=== PATIENT | male | born 1980 | race Caucasian/White ===

== ENCOUNTER → 2017-10-09 15:00 | Outpatient (CLI) | payer OTHER, SELFPAY ==
[2017-10-09 17:39] LABS: Absolute Lymphocyte Count 3.24 X10^3/ul (0.83-4.51); Absolute Neutrophil Count 5.4 X10^3/uL (2.0-7.7); Basophil# 0.03 X10^3/uL; Basophil% 0.3 % (0-1); Eosinophil# 0.18 X10^3/uL; Eosinophils% 1.9 % (0-5); Hematocrit 43.1 % (40-54); Hemoglobin 14.9 g/dl (13.0-16.5); Lymphocyte # 3.24 X10^3/ul (4.0); Lymphocyte % 34.2 % (19-41); Mean Corp Hgb Conc 34.6 g/gl (32-36); Mean Corpuscular Volume 86.9 fL (80-94); Mean Platelet Vol. 11.1 fl (6.2-12.0); Monocyte# 0.67 X10^3/uL; Monocyte% 7.1 % (0-10); Neutrophil # 5.35 X10^3/uL (2.7-7.7); Neutrophil % 56.4 % (47-70); POSITIVE COUNT NO; POSITIVE DIFFERENTIAL NO; POSITIVE MORPHOLOGY NO; Platelet Count 205 K/mm3 (150-450); RBC Distribution Width CV 13.3 % (11.6-14.6); RBC Distribution Width SD 42.3 fl (35.1-43.9); Red Blood Count 4.96 M/mm3 (4.6-6.2); White Blood Count 9.5 K/mm3 (4.4-11.0)
[2017-10-09 17:44] LABS: ALB/GLOB Ratio 0.9 RATIO (0.9-2.4); AST(SGOT) 29 U/L (15-37); Alanine Aminotransfer ALT/SGPT 63 U/L (16-61); Albumin, Serum 3.7 g/dL (3.2-5.0); Alkaline Phosphatase 94 U/L (45-117); Anion Gap 7 (5-15); BUN 10 mg/dL (7-18); BUN/Creat Ratio 10.1 RATIO (10-20); Calcium,Total 9.2 mg/dL (8.5-10.1); Chloride 104 mmol/L (98-107); Creatinine, Serum 0.99 mg/dL (0.70-1.30); EST Glomerular Filtration Rate 91 mL/min (>60); Est Glom Filt Rate - Afr Amer 110 mL/min (>60); Glucose 74 mg/dL (74-106); Potassium 3.8 mmol/L (3.5-5.1); Protein, Total 7.7 g/dL (6.4-8.2); Sodium Level 139 mmol/L (136-145)
[2017-10-17 12:09] LABS: QNTFERON TB Ag Minus Nil Value < 0 IU/mL (.); QNTFERON TB Ag Value 0.13 IU/mL (.); QNTFERON TB Mitogen Value 6.89 IU/mL (.); QNTFERON TB Nil Value 0.18 IU/mL (.)
[2017-10-17 13:35] LABS: QNTIFERON TB Gold Negative (Negative)
== END ==
PROVIDERS: Family Provider Family Medicine; PCP Family Medicine; Visit Provider Physician Assistant
DX: L40.0 Psoriasis vulgaris (principal); Z79.899 Other long term (current) drug therapy
CPT/HCPCS: 36415; 80053; 85025; 86480

== ENCOUNTER → 2020-08-02 11:34 | Outpatient (CLI) | payer MEDICAID, SELFPAY ==
[2020-07-28 16:21] VITALS: BMI 31.1
[2020-08-02 15:23] LABS: Cholesterol 183 mg/dL (200); High Density Lipoprotein 31 mg/dL; Triglycerides 308 mg/dL; Very Low Density Lipoprotein 62 mg/dL (5-40)
== END ==
PROVIDERS: Referring Provider Dermatology Pediatric Dermatology; Visit Provider Dermatology Pediatric Dermatology
DX: L30.9 Dermatitis, unspecified (principal)
CPT/HCPCS: 36415; 80061

== ENCOUNTER 2021-01-05 16:01 | Emergency (ER) | payer MEDICAID, SELFPAY ==
[2021-01-05 16:02] VITALS: BP 129/78; PULSE 149; RESP 16; TEMP 37.1; O2SAT 98; BMI 37.5
[2021-01-05 16:15] VITALS: PULSE 137; RESP 31; O2SAT 96
--- NOTE | 2021-01-05 16:21 | EX.ED.DYSGE1 ---
HPI History of Present Illness Chief Complaint: Fever Informant: patient Onset/Context/Timing Onset: Days Context: Gradual Onset Timing: Intermittent Current Severity: Mild Maximum Severity: Mild Narrative Narrative: 40-year-old male states he had Covid earlier this year and tested positive at that time. He also has a history of psoriasis for which she is on immunosuppressant injection. States he is just not felt so good the last several days. Today he had a fever as high as 103. Complains of shortness of breath, diarrhea and headache. He feels lightheaded. He has had nausea but no vomiting. He denies any significant cough. He has been treatment this with Tylenol and denies any dysuria. Prior similar symptoms: No Recent Illness/Hospitalization: No PFSH PFSH Medical History Chronic neck and back pain Knee pain Paronychia of great toe, left Seasonal allergies Home Medications amoxicillin 875 mg-potassium clavulanate 125 mg tablet 1 tab PO BID #20 tab 07/28/20 [Rx Last Taken Unknown] trazodone 150 mg tablet 150 mg PO tab 07/28/20 [History Last Taken Unknown] cephalexin 500 mg PO Q6H 10 Days #40 cap 01/05/21 [Rx Last Taken Unknown] Allergy/AdvReac Type Severity Reaction Status Date / Time No Known Allergies Allergy Verified 01/05/21 16:04 Surgical History no surgical history Social History Smoking Status: Never smoker alcohol intake: current alcohol intake frequency: a few times a week Alcohol type: beer ROS ROS ED ROS Narrative Fever, nausea, shortness of breath, diarrhea and headache. Review of Systems ROS Unobtainable: Denies due to encephalopathy Constitutional Constitutional ED: Reports fever(s) Eyes Eyes: Denies change in vision ENT ENT ED: Denies ear pain or sore throat Cardiovascular Cardiovascular: Denies chest pain Respiratory/Chest Respiratory/Chest: Reports dyspnea; Denies cough Gastrointestinal Gastrointestinal: Reports diarrhea and nausea; Denies abdominal pain, constipation or vomiting Genitourinary Genitourinary ED: Denies dysuria Musculoskeletal Musculoskeletal: Denies myalgias Integumentary Denies rash Neurologic Neurologic: Reports headache(s) Psychiatric Psychiatric: Denies depression Endocrine Endocrinology: Denies polyuria Allergic/Immunologic Allergic/Immunologic ED: Denies urticaria EXAM Physical Exam Narrative Exam Narrative: 40-year-old male vital signs are stable he is tachycardic at 140. H EENT exam unremarkable. Posterior pharynx normal. Moist remembers. Neck nontender no meningismus no lymphadenopathy. Lungs clear to auscultation bilaterally. Heart tachycardic again rate around 140 no murmur. Abdomen soft nondistended normal bowel sounds no peritoneal signs. Moving all 4 extremities. Calves nontender without edema or cords. Back nontender. Neurologically is awake alert with no focal motor deficits. Clinically the patient does not look septic. Const Vital Signs: 01/05/21 16:02 01/05/21 16:15 01/05/21 16:16 Temperature 98.7 F Temperature Source Temporal Pulse Rate 149 H 137 H Respiratory Rate 16 31 H Respiratory Effort Normal Respiratory Pattern Tachypnea Blood Pressure 129/78 H Blood Pressure Mean 95 Pulse Ox 98 96 Oxygen Delivery Method Room Air Room Air 01/05/21 17:05 01/05/21 18:20 01/05/21 18:27 Temperature 102.6 F H 99.6 F H Temperature Source Oral Oral Pulse Rate 115 H 116 H Respiratory Rate 26 H 24 H Respiratory Effort Respiratory Pattern Blood Pressure 128/74 H 144/77 H Blood Pressure Mean 92 99 Pulse Ox 96 96 Oxygen Delivery Method Room Air Room Air Positive well nourished, well developed and obese; Negative for cachectic, contractures or unkempt General Appearance ED: well developed and NAD; Negative for unkempt, cachectic, contractures, cyanotic, diaphoretic or pallor Nutritional Appearance: obese; Negative for cachectic HEENT Reports moist mucous membranes Negative for trauma or tenderness Eyes PERRL and EOMs intact bilaterally General Eye ED: Negative for pale conjunctiva or scleral icterus Neck no lymphadenopathy, supple and no JVD General: Negative for tenderness Chest Wall inspection of chest normal and palpation of chest normal Resp normal respiratory effort and clear to auscultation bilaterally Effort and Inspection: Negative for pain with movement Auscultation: Negative for rales, rhonchi or wheezes Cardio regular rate, regular rhythm, S1 normal heart sound, S2 normal heart sound and no murmurs GI normal to inspection, nondistended, normoactive bowel sounds, non-tender, non-distended and no masses Inspection: Negative for abdominal distention Auscultation: normoactive bowel sounds Palpation: soft; Negative for tender, guarding or rebound tenderness present Back/Spine no CVA tenderness General Back: Negative for CVA tenderness Cervical Spine: Negative for cervical spine tenderness Thoracic Spine / Upper Back: Negative for thoracic spinal tenderness or paraspinal muscle tenderness Extremity normal to inspection General Extremety ED: Negative for edema or tenderness General Extremity: Negative for edema Neuro oriented x3 and CN's II-XII intact bilaterally Sensorium / Orientation: alert; Negative for orientation impaired, lethargic or stuporous Motor Exam: strength 5/5 throughout Psych mental status grossly normal Appearance: Negative for unkempt Mood & Affect: Negative for depressed or tearful Skin no rashes or lesions noted, no wounds and No skin turgor normal General Skin Exam: Negative for elasticity normal, jaundice or pallor MDM MDM MDM Narrative Medical decision making narrative: 40-year-old male no acute distress states he has not felt well last several days with a fever and other symptoms. We treated with IV fluids. Currently he is afebrile. Labs are being obtained to work him up for infectious etiology. Exam is benign. Repeat exam patient has a temperature 102.6 and is tachycardic at 120. He will be given a second liter of IV saline and IV Toradol for his fever. So far his work-up has been negative. I discussed this test with him. Were awaiting his urinalysis. Repeat exam patient is doing well at 6:50 PM. His fever is improved after the Toradol. Is now 99.6. He was given a second liter of fluid. I explained to the patient his test results we will send urine and blood cultures. I am to start him on Keflex for the possibility this is an early urinary tract infection versus a viral syndrome. Lab Data Attestation: I reviewed the patient's lab results. Lab results narrative: CBC shows a white 11.1. Hemoglobin 16. No bands. Electrolytes shows a gap of 6 normal BUN and creatinine. Liver enzymes unremarkable. Lactic acid normal 1.6. Chest x-ray unremarkable. Covid test is negative also. Urinalysis shows 5-10 white cells no nitrates and 1+ bacteria culture will be sent. I did his prostate exam is nontender and not boggy. I do not think this is prostatitis. Urine and blood culture will be sent. I will start this patient on Keflex in case this is an early urinary tract infection versus a viral illness. Labs: Laboratory Results - last 24 hr 01/05/21 01/05/21 01/05/21 16:20 16:20 16:20 WBC 11.1 H RBC 5.37 Hgb 16.2 Hct 45.3 MCV 84.4 MCH 30.2 MCHC 35.8 RDW Std Deviation 41.2 RDW Coeff of [place]ameka 13.4 Plt Count 181 MPV 10.4 Immature Gran % (Auto) 0.400 Neut % (Auto) 83.8 H Lymph % (Auto) 10.6 L [place] % (Auto) 5.0 Eos % (Auto) 0.0 Baso % (Auto) 0.2 Absolute Neuts (auto) 9.3 H Absolute Lymphs (auto) 1.17 Nucleated RBC % 0 Sodium 136 Potassium 3.7 Chloride 101 Carbon Dioxide 29.0 Anion Gap 6 BUN 13 Creatinine 1.18 Estim Creat Clear Calc 82.12 Est GFR (MDRD) Af Amer 89 Est GFR (MDRD) Non-Af 73 BUN/Creatinine Ratio 11.0 Glucose 125 H Lactic Acid 1.6 Calcium 8.7 Total Bilirubin 0.90 AST 18 ALT 32 Alkaline Phosphatase 97 Total Protein 8.0 Albumin 3.8 Globulin 4.2 Albumin/Globulin Ratio 0.9 Urine Color Urine Clarity Urine pH Ur Specific [place] Urine Protein Urine Glucose (UA) Urine Ketones Urine Occult Blood Urine Nitrite Urine Bilirubin Urine Urobilinogen Ur Leukocyte Esterase Urine RBC Urine WBC Ur Squamous Epith Cells Urine Bacteria Urine Mucus 01/05/21 17:02 WBC RBC Hgb Hct MCV MCH MCHC RDW Std Deviation RDW Coeff of [place] Plt Count MPV Immature Gran % (Auto) Neut % (Auto) Lymph % (Auto) [place] % (Auto) Eos % (Auto) Baso % (Auto) Absolute Neuts (auto) Absolute Lymphs (auto) Nucleated RBC % Sodium Potassium Chloride Carbon Dioxide Anion Gap BUN Creatinine Estim Creat Clear Calc Est GFR (MDRD) Af Amer Est GFR (MDRD) Non-Af BUN/Creatinine Ratio Glucose Lactic Acid Calcium Total Bilirubin AST ALT Alkaline Phosphatase Total Protein Albumin Globulin Albumin/Globulin Ratio Urine Color Yellow Urine Clarity Clear Urine pH 5.0 Ur Specific [place] 1.025 Urine Protein 100 H Urine Glucose (UA) Normal Urine Ketones 5 H Urine Occult Blood 10 H Urine Nitrite Negative Urine Bilirubin 1 H Urine Urobilinogen 1 H Ur Leukocyte Esterase 25 H Urine RBC 0 SEEN Urine WBC 5-10 SEEN Ur Squamous Epith Cells 0 SEEN Urine Bacteria 1+ Urine Mucus 2+ Radiography Chest X-Ray - ED: 1 View, Read by ED Physician, Heart, Lungs, Mediastinum, Bony Structures, No Acute Disease and Chronic Changes Diagnostic Testing: Clinical Impression(s) from Imaging Studies Chest X-Ray 01/05/21 16:27 IMPRESSION: Nonacute portable x-ray examination of the chest. Electronically Signed: Marcin Palacios MD ([place]) at 16:47 EST , Service support , Portable chest x-ray, single view interpreted both by myself the radiologist shows no acute abnormality. No infiltrate. No pneumonia. Discharge Plan Triage Chief Complaint: Fever ED Provider: Hector Mercedes Dx/Rx/DC Orders Clinical Impression: Fever, Acute UTI Instructions: Urinary Tract Infections in Men, ED FUO Adult Prescriptions: New cephalexin 500 mg capsule 500 mg PO Q6H 10 Days Qty: 40 RF: 0 No Action trazodone 150 mg tablet 150 mg PO RF: 0 amoxicillin-pot clavulanate 875-125 mg tablet 1 tab PO BID Qty: 20 RF: 0 Primary Care Provider: Care Physician,No Primary Referrals: Kyler Heart MD [STAFF PHYSICIAN] - 3-5 Days Care Physician,No Primary [Primary Care Provider] - Activity Restrictions/Additional Instructions: We do not have a specific source for your fever this is either viral syndrome or early urinary tract infection. In case it is an early urinary tract infection we are starting you on antibiotic Keflex 4 times a day. If is a viral syndrome and improved. I did send urine cultures and blood cultures if those are positive we will call you in the next 24 to 48 hours. Plenty of fluids and rest. Alternate Tylenol and Motrin for fever. Return to the emergency department if you are feeling worse. Follow-up with Dr. Kyler Parikh of [facility] to be reevaluated and to get a primary care physician. Disposition Disposition: Home, Self Care
[2021-01-05] MEDS: 0.9% Normal Saline 1,000 ML 1000 ML IV (16:23)
--- NOTE | 2021-01-05 16:27 | RAD_ITS ---
STUDY: X-RAY CHEST REASON FOR EXAM: Male, 40 years old. fever TECHNIQUE: AP COMPARISON: None. FINDINGS: The lungs are clear and expanded. There is no demonstrated pleural abnormality. Normal size heart. Normal mediastinum and shameka. Normal visualized pulmonary arteries. Normal visualized aortic arch and descending thoracic aorta. Normal visualized thoracic spine. Normal visualized ribs, clavicles, and shoulders. There is no demonstrated abnormality of the visualized soft tissue structures of the upper abdomen. RAD/Chest 1 View (Portable) IMPRESSION: Nonacute portable x-ray examination of the chest. Electronically Signed: Marcin Palacios MD ([place]) at 16:47 EST , Service support ,
[2021-01-05 16:28] LABS: Absolute Lymphocyte Count 1.17 X10^3/uL (0.83-4.51); Absolute Neutrophil Count 9.3 X10^3/uL (2.0-7.7); Basophil# 0.02 X10^3/uL; Basophil% 0.2 % (0-1); Hematocrit 45.3 % (40-54); Hemoglobin 16.2 g/dL (13.0-16.5); Lymphocyte # 1.17 X10^3/ul (0.83-4.51); Lymphocyte % 10.6 % (19-41); Mean Corp Hgb Conc 35.8 g/dL (32-36); Mean Corpuscular Hgb 30.2 pg (27.0-32.0); Mean Corpuscular Volume 84.4 fL (80-94); Mean Platelet Vol. 10.4 fl (6.2-12.0); Monocyte# 0.55 X10^3/uL; NRBC Flagged by Analyzer 0 % (0-5); Neutrophil # 9.31 X10^3/uL (2.7-7.7); Neutrophil % 83.8 % (47-70); Platelet Count 181 K/mm3 (150-450); RBC Distribution Width CV 13.4 % (11.6-14.6); RBC Distribution Width SD 41.2 fl (35.1-43.9); Red Blood Count 5.37 M/mm3 (4.6-6.2); White Blood Count 11.1 K/mm3 (4.4-11.0)
[2021-01-05 16:45] LABS: ALB/GLOB Ratio 0.9 RATIO (0.9-2.4); AST(SGOT) 18 U/L (15-37); Alanine Aminotransfer ALT/SGPT 32 U/L (16-61); Albumin, Serum 3.8 g/dL (3.2-5.0); Alkaline Phosphatase 97 U/L (45-117); Anion Gap 6 (5-15); BUN 13 mg/dL (7-18); Calcium,Total 8.7 mg/dL (8.5-10.1); Chloride 101 mmol/L (98-107); Creatinine, Serum 1.18 mg/dL (0.70-1.30); EST Glomerular Filtration Rate 73 mL/min (>60); Est Glom Filt Rate - Afr Amer 89 mL/min (>60); Estimated Creatinine Clearance 82.12 ml/min; Globulin 4.2 g/dL (2.2-4.2); Glucose 125 mg/dL (74-106); Potassium 3.7 mmol/L (3.5-5.1); Sodium Level 136 mmol/L (136-145)
[2021-01-05 16:59] LABS: Lactic Acid 1.6 mmol/L (0.4-1.9)
[2021-01-05 17:05] VITALS: BP 128/74; PULSE 115; RESP 26; TEMP 39.2; O2SAT 96
[2021-01-05 17:13] LABS: Red Blood Cells-Urine 0 SEEN /hpf (0-5); Squamous Epithelial Cells - UA 0 SEEN /hpf (0-5)
[2021-01-05 17:17] LABS: Color, Urine Yellow (Yellow); Glucose, Dipstick Normal (Normal); Ketone-Dipstick 5 mg/dl (Negative); Leukocyte Esterase-Dipstick 25 /ul (Negative); Nitrite-Dipstick Negative (Negative); Occult Blood-Urine 10 /ul (Negative); Protein-Dipstick 100 mg/dl (Negative); Specific Gravity, Urine 1.025 (1.002-1.030); Urine Clarity Clear (Clear); Urine Urobilinogen 1 mg/dl (Normal)
[2021-01-05 17:36] LABS: Bacteria 1+ /hpf (None Seen); Mucous, Urine 2+ /hpf (<or=2+); Urine Bilirubin Dipstick 1 mg/dL (Negative); White Blood Cells 5-10 SEEN /hpf (0-5)
[2021-01-05] MEDS: Ketorolac 30 MG/ML Syringe IV (17:38)
[2021-01-05] MEDS: 0.9% Normal Saline 1,000 ML 999 ML IV (17:38)
[2021-01-05 18:20] VITALS: BP 144/77; PULSE 116; RESP 24; O2SAT 96
[2021-01-05 18:27] VITALS: TEMP 37.6
[2021-01-05] MEDS: Ondansetron 4 MG/2 ML Vial IV (18:28)
[2021-01-05] MEDS: Cephalexin 250 MG Capsule 500 MG PO (19:05)
[2021-01-05 19:06] VITALS: BP 123/61; PULSE 110; RESP 16; O2SAT 98
== END 2021-01-05 19:08 | disposition home or self-care (01) ==
PROVIDERS: Emergency Provider Emergency Medicine
DX: N39.0 Urinary tract infection, site not specified (principal); L40.9 Psoriasis, unspecified; Z79.899 Other long term (current) drug therapy
CPT/HCPCS: 36415; 71045; 80053; 81001; 83605; 85025; 87040; 87086; 87426; 96361; 96374; 96375; 99285; J7030; A4216; J2405

== ENCOUNTER 2021-01-08 06:57 | Emergency (ER) | payer MEDICAID, SELFPAY ==
[2021-01-08 06:58] VITALS: BP 154/93; PULSE 99; RESP 24; TEMP 36.8; O2SAT 92; BMI 44.3
--- NOTE | 2021-01-08 07:04 | EX.ED.DYSGE1 ---
HPI History of Present Illness Chief Complaint: Fever Informant: patient and spouse/S.O. Narrative Narrative: Patient presents with some nausea and diarrhea as well as fever. He started his symptoms on Sunday which were still having fever. He was seen here on Sunday. He had extensive work-up done. There was questions of a possible UTI so he was treated He has no urinary symptoms now. pending cultures. He has no cough at all. He states he feels maybe a little short of breath when he walks around but is mostly decreased energy with activity. He gets nauseated mostly if he tries to eat or drink anything so he is not drinking. No chest pain. No myalgias. He does admit that the urine is a little darker but it does not burn or hurt. Patient had no fever yesterday. He was concerned because he had a fever of 100.2 this morning. He has been using family's Reglan for his nausea which is not helping a lot. He is taking his cephalexin. No other antibiotics within months. No travel out of the country. He is on well water not city water but no one else feels ill. He had Covid earlier this year. He has not had Covid or influenza vaccines. [facility] Medical History Chronic neck and back pain Knee pain Paronychia of great toe, left Seasonal allergies Home Medications trazodone 150 mg tablet 150 mg PO QHS tab 07/28/20 [History Last Taken Unknown] cephalexin 500 mg PO Q6H 10 Days #40 cap 01/05/21 [Rx Last Taken Unknown] aripiprazole 30 mg PO DAILY 01/08/21 [History Last Taken Unknown] venlafaxine 75 mg PO 01/08/21 [History Last Taken Unknown] venlafaxine 150 mg PO 01/08/21 [History Last Taken Unknown] Allergy/AdvReac Type Severity Reaction Status Date / Time No Known Allergies Allergy Verified 01/08/21 07:01 Social History Smoking Status: Never smoker alcohol intake: current alcohol intake frequency: a few times a week Alcohol type: beer ROS ROS ED Constitutional Constitutional ED: Reports fever(s) and subjective; Denies sweats or weight loss Eyes Eyes: Denies blurry vision ENT ENT ED: Denies ear pain, rhinorrhea or sore throat Cardiovascular Cardiovascular: Denies chest pain or palpitations Respiratory/Chest Respiratory/Chest: Reports dyspnea; Denies cough or sputum Gastrointestinal Gastrointestinal: Reports diarrhea, nausea and vomiting; Denies abdominal pain, constipation or melena Genitourinary Genitourinary ED: Reports other Details: Urine is darker than normal but no burning discomfort frequency or urgency. ; Denies dysuria or hematuria Musculoskeletal Musculoskeletal: Denies myalgias Integumentary Denies rash Neurologic Neurologic: Denies headache(s) or weakness Endocrine Endocrinology: Denies polydipsia or polyuria Allergic/Immunologic Allergic/Immunologic ED: Denies mouth swelling or urticaria EXAM Physical Exam Const Vital Signs: 01/08/21 06:58 01/08/21 07:50 01/08/21 09:34 Temperature 98.3 F 98.3 F Temperature Source Oral Oral Pulse Rate 99 94 88 Respiratory Rate 24 H 15 15 Blood Pressure 154/93 H 143/87 H 129/86 H Blood Pressure Mean 113 105 100 Pulse Ox 92 95 Oxygen Delivery Method Room Air Positive well nourished, well developed and obese General Appearance ED: well developed and NAD; Negative for cyanotic or diaphoretic Nutritional Appearance: obese HEENT Reports dry mucous membranes Mouth ED: Yes dry mucous membranes Mouth: dry mucous membranes Eyes General Eye ED: Negative for pale conjunctiva or scleral icterus Neck no lymphadenopathy and no JVD Chest Wall inspection of chest normal Resp clear to auscultation bilaterally Effort and Inspection: Negative for pain with movement Auscultation: Negative for rales, rhonchi, wheezes or diminished lung sounds Cardio regular rate, regular rhythm, S1 normal heart sound and no murmurs GI normal to inspection, nondistended, normoactive bowel sounds, non-tender, non-distended and no masses Auscultation: normoactive bowel sounds; Negative for hyperactive bowel sounds or hypoactive bowel sounds Palpation: soft; Negative for tender or guarding Back/Spine no CVA tenderness Extremity normal to inspection General Extremety ED: Negative for edema or tenderness General Extremity: Negative for edema Neuro oriented x3 Sensorium / Orientation: alert Psych mental status grossly normal Skin no rashes or lesions noted and no wounds MDM MDM MDM Narrative Medical decision making narrative: I did check his urine and blood cultures from the recent visit. They are still negative at 48 hours. CBC is normal. Electrolytes are normal. Liver function test test show very minimal elevation which can occur with viral infections. Covid is negative. Chest x-ray is negative. Patient had chest discomfort here. But his discomfort was 0 out of 10. They thought it was his anxiety. We did do an EKG that showed no acute process. I think this patient has a viral illness most likely. His urine really did not show significant signs of infection. However, I would like to continue his antibiotics until we have at least 72 hours culture. We discussed reasons to return. Lab Data Attestation: I reviewed the patient's lab results. Labs: Laboratory Results - last 24 hr 01/08/21 01/08/21 01/08/21 07:19 07:19 07:19 WBC 6.0 RBC 4.80 Hgb 14.3 Hct 39.9 L MCV 83.1 MCH 29.8 MCHC 35.8 RDW Std Deviation 39.8 RDW Coeff of [place]ameka 13.2 Plt Count 172 MPV 10.6 Immature Gran % (Auto) 0.700 Neut % (Auto) 55.9 Lymph % (Auto) 32.9 [place] % (Auto) 10.3 H Eos % (Auto) 0.0 Baso % (Auto) 0.2 Absolute Neuts (auto) 3.3 Absolute Lymphs (auto) 1.96 Nucleated RBC % 0 Sodium 138 Potassium 3.6 Chloride 105 Carbon Dioxide 28.0 Anion Gap 5 BUN 10 Creatinine 0.92 Estim Creat Clear Calc 105.33 Est GFR (MDRD) Af Amer 118 Est GFR (MDRD) Non-Af 98 BUN/Creatinine Ratio 10.9 Glucose 108 H Calcium 8.5 Total Bilirubin 0.70 AST 55 H ALT 75 H Alkaline Phosphatase 124 H Total Protein 7.0 Albumin 3.0 L Globulin 4.0 Albumin/Globulin Ratio 0.8 L Urine Color Urine Clarity Urine pH Ur Specific [place] Urine Protein Urine Glucose (UA) Urine Ketones Urine Occult Blood Urine Nitrite Urine Bilirubin Urine Urobilinogen Ur Leukocyte Esterase Urine RBC Urine WBC Ur Squamous Epith Cells Urine Bacteria Urine Mucus COVID-19 (CIARA) Cancelled 01/08/21 08:36 WBC RBC Hgb Hct MCV MCH MCHC RDW Std Deviation RDW Coeff of [place]ameka Plt Count MPV Immature Gran % (Auto) Neut % (Auto) Lymph % (Auto) [place] % (Auto) Eos % (Auto) Baso % (Auto) Absolute Neuts (auto) Absolute Lymphs (auto) Nucleated RBC % Sodium Potassium Chloride Carbon Dioxide Anion Gap BUN Creatinine Estim Creat Clear Calc Est GFR (MDRD) Af Amer Est GFR (MDRD) Non-Af BUN/Creatinine Ratio Glucose Calcium Total Bilirubin AST ALT Alkaline Phosphatase Total Protein Albumin Globulin Albumin/Globulin Ratio Urine Color Yellow Urine Clarity Sl. Cloudy Urine pH 6.5 Ur Specific [place] 1.015 Urine Protein 30 H Urine Glucose (UA) Normal Urine Ketones 5 H Urine Occult Blood 10 H Urine Nitrite Negative Urine Bilirubin 1 H Urine Urobilinogen 1 H Ur Leukocyte Esterase 25 H Urine RBC 0-5 SEEN Urine WBC 0-5 SEEN Ur Squamous Epith Cells 0 SEEN Urine Bacteria 0 SEEN Urine Mucus 0 SEEN COVID-19 ([place]ARA) Radiography Diagnostic Testing: Clinical Impression(s) from Imaging Studies Chest X-Ray 01/08/21 07:30 IMPRESSION: Stable chest x-ray. No demonstrated acute cardiopulmonary process. Electronically Signed: Zoraida Coleman MD at 9:10 EST Tel , Service support , EKG Initial EKG: Comments: KG was done for 0 out of 10 chest discomfort. EKG read by me shows normal sinus rhythm with overall rate of 84. No ectopy. No acute ST elevation or depression. [place] interval, QRS duration and QTc normal. Discharge Plan Triage Chief Complaint: Fever Other Complaint: General Illness ED Provider: Michael Mendoza Dx/Rx/DC Orders Clinical Impression: Fever Instructions: ED Viral Syndrome (Adult) Prescriptions: No Action trazodone 150 mg tablet 150 mg PO QHS RF: 0 cephalexin 500 mg capsule 500 mg PO Q6H 10 Days Qty: 40 RF: 0 venlafaxine 75 mg capsule,extended release 24hr 75 mg PO RF: 0 venlafaxine 150 mg capsule,extended release 24hr 150 mg PO RF: 0 aripiprazole 30 mg tablet 30 mg PO DAILY RF: 0 Primary Care Provider: Care Physician,No Primary Referrals: Efraín Downing MD [STAFF PHYSICIAN] - 3-5 Days Care Physician,No Primary [Primary Care Provider] - Disposition Disposition: Home, Self Care
[2021-01-08] MEDS: 0.9% Normal Saline 1,000 ML 1000 ML IV (07:24)
[2021-01-08] MEDS: Ondansetron 4 MG/2 ML Vial IV (07:24)
[2021-01-08 07:26] LABS: Absolute Lymphocyte Count 1.96 X10^3/uL (0.83-4.51); Absolute Neutrophil Count 3.3 X10^3/uL (2.0-7.7); Basophil# 0.01 X10^3/uL; Basophil% 0.2 % (0-1); Hematocrit 39.9 % (40-54); Hemoglobin 14.3 g/dL (13.0-16.5); Lymphocyte # 1.96 X10^3/ul (0.83-4.51); Lymphocyte % 32.9 % (19-41); Mean Corp Hgb Conc 35.8 g/dL (32-36); Mean Corpuscular Hgb 29.8 pg (27.0-32.0); Mean Corpuscular Volume 83.1 fL (80-94); Mean Platelet Vol. 10.6 fl (6.2-12.0); Monocyte# 0.61 X10^3/uL; Monocyte% 10.3 % (0-10); NRBC Flagged by Analyzer 0 % (0-5); Neutrophil # 3.33 X10^3/uL (2.7-7.7); Neutrophil % 55.9 % (47-70); Platelet Count 172 K/mm3 (150-450); RBC Distribution Width CV 13.2 % (11.6-14.6); RBC Distribution Width SD 39.8 fl (35.1-43.9)
--- NOTE | 2021-01-08 07:30 | RAD_ITS ---
STUDY: X-RAY CHEST REASON FOR EXAM: Male, 40 years old. SOB TECHNIQUE: PA and lateral views of the chest. COMPARISON: January 05, 2021 chest x-ray FINDINGS: Interstitial markings are mildly prominent. There is no demonstrated pleural abnormality. Normal size heart. Normal mediastinum and shameka. Normal visualized pulmonary arteries. Normal visualized aortic arch and descending thoracic aorta. Normal visualized thoracic spine. Normal visualized ribs, clavicles, and shoulders. There is no demonstrated abnormality of the visualized soft tissue structures of the upper abdomen. RAD/Chest PA and Lateral IMPRESSION: Stable chest x-ray. No demonstrated acute cardiopulmonary process. Electronically Signed: Zoraida Coleman MD at 9:10 EST Tel , Service support ,
[2021-01-08 07:42] LABS: ALB/GLOB Ratio 0.8 RATIO (0.9-2.4); AST(SGOT) 55 U/L (15-37); Alanine Aminotransfer ALT/SGPT 75 U/L (16-61); Alkaline Phosphatase 124 U/L (45-117); Anion Gap 5 (5-15); BUN 10 mg/dL (7-18); BUN/Creat Ratio 10.9 RATIO (10-20); Calcium,Total 8.5 mg/dL (8.5-10.1); Chloride 105 mmol/L (98-107); Creatinine, Serum 0.92 mg/dL (0.70-1.30); EST Glomerular Filtration Rate 98 mL/min (>60); Est Glom Filt Rate - Afr Amer 118 mL/min (>60); Estimated Creatinine Clearance 105.33 ml/min; Glucose 108 mg/dL (74-106); Potassium 3.6 mmol/L (3.5-5.1); Sodium Level 138 mmol/L (136-145)
[2021-01-08 07:50] VITALS: BP 143/87; PULSE 94; RESP 15; TEMP 36.8; O2SAT 95
--- NOTE | 2021-01-08 08:11 | EKG12_ITS ---
Test Reason : CP Blood Pressure : / mmHG Vent. Rate : 084 BPM Atrial Rate : 084 BPM P-R Int : 150 ms QRS Dur : 100 ms QT Int : 386 ms P-R-T Axes : 035 065 042 degrees QTc Int : 456 ms Normal sinus rhythm Normal ECG Confirmed by AUGUSTO WANG, DAVID ([id number]), scientific editor SARANYA RHODES ([id number]) on 01/11/2021 8:50:33 AM Referred By: YOLI Confirmed By:DAVID CASAS MD
[2021-01-08 08:41] LABS: Bacteria 0 SEEN /hpf (None Seen); Mucous, Urine 0 SEEN /hpf (<or=2+); Squamous Epithelial Cells - UA 0 SEEN /hpf (0-5)
[2021-01-08 08:42] LABS: Color, Urine Yellow (Yellow); Glucose, Dipstick Normal (Normal); Ketone-Dipstick 5 mg/dl (Negative); Leukocyte Esterase-Dipstick 25 /ul (Negative); Nitrite-Dipstick Negative (Negative); Occult Blood-Urine 10 /ul (Negative); Protein-Dipstick 30 mg/dl (Negative); Specific Gravity, Urine 1.015 (1.002-1.030); Urine Clarity Sl. Cloudy (Clear); Urine Urobilinogen 1 mg/dl (Normal); Urine pH 6.5 (5.0 - 8.0)
[2021-01-08 08:45] LABS: Urine Bilirubin Dipstick 1 mg/dL (Negative)
[2021-01-08 08:49] LABS: Red Blood Cells-Urine 0-5 SEEN /hpf (0-5); White Blood Cells 0-5 SEEN /hpf (0-5)
[2021-01-08 09:34] VITALS: BP 129/86; PULSE 88; RESP 15
[2021-01-08 10:06] VITALS: PULSE 89; RESP 17; O2SAT 99
== END 2021-01-08 11:16 | disposition home or self-care (01) ==
PROVIDERS: Emergency Provider Emergency Medicine
DX: R50.9 Fever, unspecified (principal); G89.29 Other chronic pain; R11.2 Nausea with vomiting, unspecified; R19.7 Diarrhea, unspecified; R06.00 Dyspnea, unspecified; E66.9 Obesity, unspecified; Z68.41 Body mass index [BMI] 40.0-44.9, adult
CPT/HCPCS: 71046; 80053; 81001; 85025; 87426; 93005; 96361; 96374; 99283; J7030; A4216; J2405

== ENCOUNTER 2021-02-25 15:05 | Outpatient (CLI) | payer MEDICAID, SELFPAY ==
[2021-02-25 15:54] LABS: Bacteria 0 SEEN /hpf (None Seen); Mucous, Urine 0 SEEN /hpf (<or=2+); Squamous Epithelial Cells - UA 0 SEEN /hpf (0-5); White Blood Cells 0 SEEN /hpf (0-5)
[2021-02-25 16:00] LABS: Color, Urine Yellow (Yellow); Glucose, Dipstick Normal (Normal); Ketone-Dipstick Negative (Negative); Leukocyte Esterase-Dipstick Negative /ul (Negative); Nitrite-Dipstick Negative (Negative); Occult Blood-Urine 150 /ul (Negative); Protein-Dipstick Negative (Negative); Specific Gravity, Urine 1.015 (1.002-1.030); Urine Bilirubin Dipstick Negative (Negative); Urine Clarity Clear (Clear); Urine Urobilinogen Normal (Normal)
[2021-02-25 16:17] LABS: Red Blood Cells-Urine 10-25 SEEN /hpf (0-5)
== END 2021-02-25 23:59 | disposition short-term general hospital (02) ==
LOC: LABSPEC 15:06
PROVIDERS: Visit Provider Physician Assistant Surgical
DX: N39.0 Urinary tract infection, site not specified (principal)
CPT/HCPCS: 81001; 87086

== ENCOUNTER 2021-06-21 08:00 | Outpatient (RCR) | payer MEDICAID, SELFPAY ==
--- NOTE | 2021-06-21 10:10 | BH.SGPN.GN ---
Behaviors/Verbalizations/Mental Status: []Client alert and oriented, casually dressed and groomed. Eye contact good. Motor activity appropriate. Speech within normal limits. Affect congruent, mood depressed, anxious. Thoughts linear, logical, no signs of hallucinations or delusions. Client Response/Progress/Benefit: []Client first day in IOP tx, responded well to session AEB taking notes and listening attentively to others. Client was attentive throughout group discussion defining resilience and where resilience originates. Agreed with group that resilience can be both something you?re born with and something developed over time. Engaged throughout discussion on the mental health benefits of resiliency, nodding as fellow participants shared personal benefits of recognizing one?s own resilience. Shared that resilience can decrease stress when faced with the unexpected. Clinician provided psychoeducation on the road to resilience and introduced how making connections with others can help build resilience. Client appeared to benefit from increased knowledge of resilience and mental health benefits of developing a resilient mindset. Client will continue IOP treatment to improve coping skill repertoire, reduce sx, as well as prevent decompensation. Narrative Note: []
--- NOTE | 2021-06-21 15:38 | BH.MDN_ITS ---
Multi-Disciplinary Note - Note 60-min Individual Time Started:: 11:50 Date: 06/21/21 Purpose of session/treatment goals addressed:: Purpose of session was to assess pt's current symptoms and identify treatment goals for IOP level of care. Eye Contact:: Good Motor Activity:: Appropriate Appearance:: Casual Speech:: Appropriate Mood:: Anxious, Depressed Affect:: Congruent Thoughts:: Linear, Logical, No evidence of hallucinations/delusions noted Staff Interventions:: psychoeducation on: - cognitive triangle, love languages, behavioral activation, CBT techniques, rapport building, strengths perspective, treatment planning, goal setting, taught coping skills Client Response:: Griffin. 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 Client stated while deployed for six or seven months he experienced significant amount of trauma with loss of his friends. client reported due to the significant money trauma he experienced while overseas he started to get medical complications which led to him being sent back home. Client was informed by the he would be given honorable discharge which client stated has resulted in feeling guilt, shame, and embarrassment that he could not stay to help his unit. Flat report he still believes that he is weak and experiences the guilt and shame. client reported when he returned from the appointment he never talked about what he experienced overseas which led to a significant amount of anger. Client reported he struggled with maintaining relationships because others did not understand him and why he reacted the way he reacted. 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 Client reported experiencing several different trauma situations while on the police fo rce. Client stated it seemed while in law enforcement his trauma reactions were encouraged because it made him more hypervigilant and aggressive. Client said when he got fired from his job two years ago due to having a hard time getting along with others and not being productive. Client stated since losing his job he has been struggling with loss of identity because he put everything into his job and now hasn?t been working for 2 years. Client [facility]. Client reported he has been seen in outpatient counselor off and on for the last two years that [facility]. Client reported he has been seeing outpatient counselor more consistently in the last 6 months. Client stated he was offered [facility] intensive [facility] but declined due to all of them being [facility]. Client stated he is seeking intensive treatment now because two weeks ago his told him he either needs to get treatment or she will divorce him. Client reported at the time he was surprised and shocked by this revelation but since processing it he can really realize how his mental health has impacted his relationship. Client stated he often isolates and lays around most days which it has led to some resentment from his . Client responded well to education about cognitive triangle, opposite action and love languages. Client could connect how his behavior of laying around all day leads to increased feelings of depression and ultimately more negative thinking. Client receptive to starting to create three intentions per day to help him be more accountable and productive. Client stated while in the program he would like to learn healthy coping skills to manage his anger and irritability, we'd like to increase enjoyment of life and improve his relationships with his and children. Client reported his small goals are to get one load of laundry done, mow the lawn at least once a week and spend quality time with his family. Risks/Concerns:: Client denies current suicidal ideation, plan or intention to date. future focused. Progress Toward Goals/Plan:: No progress observed given today is first day in IOP. Session focused on identifying treatment goals, building rapport and provide psychoeducation on basics of CBT. Plan is for client to continue IOP to improve daily functioning, increase healthy coping and prevent decompensation. Time Stopped:: 12:50
--- NOTE | 2021-06-21 15:38 | BH.COMM_ITS ---
Communication Note - Communication with Client Communication Note: Met with patient to complete initial paperwork. No sig nificant changes since pre-admission screening. Completed [place] suicide screening with low-moderate risk score of 7 out of a possible 25 using the scoring guide for the C-SSRS. Pt admits to passive thoughts of within the past month, but he denies any suicidal ideations within the past month. Family is his protective factor. Hx of suicidal ideations without plan or intent in his lifetime, denies any suicide attempts or preparatory acts. Consulted with Dr. Guevara with plan to admits to [facility] level of care with dx of MDD, severe, recurrent, w/o psychosis F33.2
--- NOTE | 2021-06-21 17:03 | BH.MDN ---
Multi-Disciplinary Note - Note 60-min Individual Time Started:: 11:50 Date: 06/21/21 Purpose of session/treatment goals addressed:: Purpose of session was to identify symptoms and stressors, gather background information and collaborate to identify treatment goals for IOP. Eye Contact:: Good Motor Activity:: Restless Appearance:: Casual Speech:: Appropriate Mood:: Anxious Affect:: Congruent Thoughts:: Linear, Logical, No evidence of hallucinations/delusions noted Staff Interventions:: psychoeducation on: - cognitive triangle and opposite action, CBT techniques, rapport building, strengths perspective, treatment planning, goal setting, taught coping skills Client Response:: Client reported he had a wake up call about two weeks ago when his told him she was going to divorce him if he didn't get help. Client reported at the time he hadn't realized how bad he was until she made this ultimatum. Client stated looking back he now understands where his is coming from. Client reported he has been struggling for several years with his mental health. Client reported he has been on disability for two years after being fired from his job. Client stated he was fired because couldn't get along with others. Client reported his mood was constantly negative, he wasn't completing his work and was rude to others. Client stated these behaviors were some of the things that led to his firing. Client reported his told him his irritability, anger, not helping around the house and disengaging from the family are things that she wants to see get better. 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 Client reported he experienced a lot of trauma and loss when he was oversees for 6-7 months. Client stated he was sent home due to experiencing a lot of medical issues while oversees. Client reported he eventually was honorably discharged from the . Client stated he has a lot of guilt, shame and embarrassment that he couldn't stay with his unit oversees. Client reported he does believe this caused his mental health issues which often presents as anger and irritability towards others. Client reported he first started taking medications in 2007 and [facility] 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 Client reported he has been seeing a counselor through [facility] off and on for the last two years. Client reported while in IOP he would like to learn about his anger/irritability triggers and learn how to respond better when triggered. Client stated also wants to learn healthy skills so he can start to love life again. Client responded well to psychoeducation about cognitive triangle and behavior activation. Client stated small goals for the week is to get lawn mowed and do at least one load of laundry every day. Risks/Concerns:: Denies suicidal ideation, plan or intention to date. Progress Toward Goals/Plan:: No progress observed, client's first day in IOP. Session focused on identifying treatment goals for IOP. Client to continue IOP to increase daily functioning, increase healthy coping skills and prevent decompensation. Time Stopped:: 12:50
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
[2021-06-22 10:56] VITALS: BP 129/87; PULSE 99
--- NOTE | 2021-06-22 11:08 | BH.SGPN.GN ---
Behaviors/Verbalizations/Mental Status: []Pt alert and oriented, casual appearance. Eye contact good. Motor activity appropriate. Speech within normal limits. Affect flat, mood depressed. Thoughts linear, logical, no signs of hallucinations or delusions. Client Response/Progress/Benefit: []Pt receptive of session, engaged throughout AEB pt actively listening and contributing to discussion, as well as taking notes. Pt completed worksheet identifying personal pitfalls impacting mental health progress. Pt identified the following pitfalls: procrastinating, not challenging negative thoughts, isolating, all or nothing expectations, and looking at things that make him upset. Group learned different coping skills to help manage pitfalls. Pt selected the following coping skills to help with pitfalls: thought challenging, walking ,and listening to music. Pt reports wanting to work on managing his pitfalls by making an effort to sit in the living room with his family rather than isolating in his bedroom. Benefited from identifying personal pitfalls and strategies to overcome these pitfalls. Will continue IOP tx to prevent decompensation, improve motivation, and improve daily functioning. Narrative Note: []
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
--- NOTE | 2021-06-22 12:32 | BH.DR.ITP ---
Initial Treatment Plan Patient Information Visit Information: ADMISSION DATE: EXPECTED LOS: 4-6 weeks Problems/Symptoms Problem #1:: Depression Symptom:: Sadness, hopelessness, worthlessness, anhedonia, low energy, lack of motivation, avoidance, isolation, decreased concentration, guilt, passive thoughts of , passive, fleeting suicidal ideation Problem #2:: Anxiety Symptom:: Worry, rumination, panic attacks, avoidance, nightmares, flashbacks
--- NOTE | 2021-06-22 14:49 | BH.MTP ---
Master Treatment Plan - Patient Information Program Physician:: Dr. Guevara Primary Therapist:: Tatum Cummins, [facility] - Psychiatric Diagnoses Psychiatric Diagnoses:: 1. Major depressive disorder, recurrent, severe without psychosis. 2. Panic disorder. 3. PTSD Diagnosis Code(s):: F33.2 - Estimated LOS Estimated LOS (in weeks):: 6 Problem/Goal #1 - Problem/Goal #1 Stated Goal:: Client will decrease depressive symptoms, isolation, and agitation due to Major Depressive Disorder through Intensive Outpatient Program.? Description of Barriers: client's distorted thoughts, low motivation, low energy, apathy, and psychosocial stressors could be potential barriers to treatment. Functional Impact: Pt has hx of depression, anxiety, and PTSD referred to [facility] by outpatient counselor for worsening symptoms of depression and daily panic for the past few years. Pt?s threatened to divorce pt if he did not get more help. Pt?s mental health has impacted his ability to work and has been on disability for the last two years. Pt endorses depressed mood with increased irritability, isolation, low motivation, anhedonia, low energy, decreased concentration, feelings of hopelessness and worthlessness. Pt lays in bed most days and doesn?t accomplish much throughout the day. Pt has daily panic attacks for last two years. - Objectives Objective #1 Stated Objective: Client will learn and utilize 2-3 healthy coping strategies to manage depressive symptoms. Interventions: Therapist and group therapy will utilize CBT techniques to assist client with understanding the connection between thoughts, feelings and behaviors. Education will be provided on behavioral activation. Therapist will assist client in learning internal coping strategies to manage depressive symptoms, along with helping client identify triggers. Discharge Criteria: Client will have achieved this goal when can verbalize and has practiced at least 2 healthy coping strategies that successfully manage depressive symptoms. Target Date: 08/02/21 Review Date: 07/19/21 Objective #2 Stated Objective: Pt will decrease depressive symptoms AEB pt?s score on the DSM 5 cross-cutting measure and improve pt?s daily functioning. Interventions: Through groups and individual therapy, pt will be provided with education on cognitive distortions, mistaken beliefs, and identifying and combating negative self-talk. Therapist will assist pt with getting back into the activities she once enjoyed as well as increasing healthy coping strategies. Discharge Criteria: Pt will have met this goal when pt?s score on the DSM 5 cross cutting measure for depression has been decreased and per pt?s report daily functioning has improved. Target Date: 08/02/21 Review Date: 07/19/21 Problem/Goal #2 - Problem/Goal #2 Stated Goal:: Client will reduce overall frequency, intensity, and duration of the anxiety so that daily functioning is not impaired. Description of Barriers: client's distorted thoughts, low motivation, low energy, apathy, and psychosocial stressors could be potential barriers to treatment. Functional Impact: Pt has hx of depression, anxiety, and PTSD referred to [facility] by outpatient counselor for worsening symptoms of depression and daily panic for the past few years. Pt?s threatened to divorce pt if he did not get more help. Pt?s mental health has impacted his ability to work and has been on disability for the last two years. Pt endorses depressed mood with increased irritability, isolation, low motivation, anhedonia, low energy, decreased concentration, feelings of hopelessness and worthlessness. Pt lays in bed most days and doesn?t accomplish much throughout the day. Pt has daily panic attacks for last two years. - Objectives Objective #1 Stated Objective: ?Client will learn and implement 2-3 calming skills to reduce overall anxiety and manage anxiety symptoms. Interventions: Therapist and group sessions will help client identify physiological warning signs of anxiety, increase awareness of thoughts that increase anxiety, and identify behaviors that reinforce anxious symptoms. Group and individual counseling will teach client calming skills to help manage anxious symptoms. Discharge Criteria: Client will have achieved this goal when can verbalize at least 2 calming skills and reports skills successfully help reduce anxious symptoms. Target Date: 08/02/21 Review Date: 07/19/21 Objective #2 Stated Objective: Pt will decrease anxious symptoms AEB pt?s score on the DSM 5 cross-cutting measure improve pt?s daily functioning. Interventions: Through groups and individual therapy, pt will be provided education about anxiety?s impact on body and common physiological reaction to anxiety. Therapist will teach pt appropriate breathing techniques and build healthy coping skills to manage daily anxieties. Discharge Criteria: Pt will have met this goal when pt?s score on the DSM 5 cross cutting measure for anxiety has been decreased and per pt?s report daily functioning has improved. Target Date: 08/02/21 Review Date: 07/19/21
--- NOTE | 2021-06-23 09:05 | BH.SGPN.GN ---
Behaviors/Verbalizations/Mental Status: [] Eye contact is good. Motor activity is appropriate. Appearance is casual. Speech is Appropriate. Mood is Depressed. Affect is flat. Thoughts are linear and logical. No evidence of psychosis. Reviewed daily check in sheet and pt reports no suicidal ideations Client Response/Progress/Benefit: [] Pt participated when prompted. Notes to be drowsy at times. Daily symptom tracker notes 4/5 fro depression, 3/5 for anxiety, and 2/5 for anger. Mental health wins include completing tasks around the house yesterday. Discussed why this was a win and progress for him. Also reports that he spent time with his son which was also a goal that he made. He is attempting to set up a routine and purpose throughout the day which he beleives that he has been lacking. Discussed how lack of purpose can impact mental health and lead to isolation. Progress noted per pt report. Benefited from group support, encouragment, and feedback. Will continue in IOP to maintain safety, improve functioning, and prevent decompensation. Narrative Note: []
--- NOTE | 2021-06-23 10:05 | BH.SGPN.GN ---
Behaviors/Verbalizations/Mental Status: [] Eye contact is good. Motor activity is appropriate. Appearance is casual. Speech is Appropriate. Mood is depressed. Affect is flat. Thoughts are linear and logical. No evidence of psychosis. Client Response/Progress/Benefit: [] Pt participated at times during group discussions. Attentive for most of the session, however was drowsy this AM. Group worked together to identify benefits of healthy relationships which include; improves mental health, encouragement, motivation, accountability, validation, connection, someone to share experiences with, and personal growth. Group identified factors that contribute to a healthy relationship which included; communication, conflict resolution skills, trust, independence, and respecting boundaries. Group also identified factors that lead to unhealthy relationships which included; unrealistic expectations, over-reliance, assumptions, deception, and unhealthy habits. Actively participated in group experiential activity. Benefited from increased insight and awareness of benefits of healthy relationships and factors that contribute to unhealthy relationships. Will continue in IOP to maintain safety, increase healthy coping, and improve functioning. Narrative Note: []
--- NOTE | 2021-06-23 11:08 | BH.SGPN.GN ---
Behaviors/Verbalizations/Mental Status: []Client alert and oriented, casually dressed and groomed. Eye contact good. Motor activity appropriate. Speech within normal limits, quiet with limited input provided. Affect congruent, mood anxious and depressed. Thoughts linear, logical, no signs of hallucinations or delusions. Client Response/Progress/Benefit: []Client responded well to session, actively engaged AEB nodding his head throughout discussion and taking notes. Attentive as group worked to process challenge activity from previous group and identify how barriers and strengths demonstrated in activity can relate to those within own personal relationships. Able to identify healthy and unhealthy forces impacting client?s own current relationships. Client identified trust, support, fairness, and problem-solving skills as current strengths within the relationship with client?s . Noted that difficulties with being possessiveness, blame, and poor communication have had unhealthy impacts on the relationship. Client reflected that he would like to work on challenging himself to practice being more open and honest about his feelings and needs, as well as improve his own sense of independence to improve the relationship. Appeared to benefit from reflecting upon personal relationship strengths, as well as brainstorming strategies to build healthier relationships. Pt recommended to continue IOP tx to further promote mood stability, continue working on building healthy coping skills for mood management, as well as prevent decompensation. Narrative Note: []
--- NOTE | 2021-06-28 09:05 | BH.SGPN.GN ---
Behaviors/Verbalizations/Mental Status: [] Eye contact is good. Motor activity is appropriate. Appearance is casual. Speech is Appropriate. Mood is depressed. Affect is flat. Thoughts are linear and logical. No evidence of psychosis. Reviewed daily check in sheet and no reports of suicidal ideations or intent. Client Response/Progress/Benefit: [] Pt particiapted at times during group discussion. Attentive. Emotion for today is hopeful. Daily symptom tracker notes 4/5 for anxiety and 3/5 for depression. Mental health wins include increased motivation and energy. Utilizing skills. More engaged with family and active throughout the day. Reports that he put in a garden over the weekend and went to the movies with his kids. He shared that being in the movie theater triggers significant anxiety as the environment is overstimulating. Also reports that it can cause hypervigilance as he is in a dark room with strangers. He utilized new skills and was able to reframe thoughts in the moment to successfully process this trigger. Stressors are his finances. Progress noted per pt report. Benefited from group support, encouragement, and feedback. Will continue in IOP to prevent decompensation, increase healthy coping, and improve functioning. Narrative Note: []
--- NOTE | 2021-06-28 10:05 | BH.SGPN.GN ---
Behaviors/Verbalizations/Mental Status: []Eye contact is good. Motor activity is appropriate. Appearance is casual. Speech is Appropriate. Mood is anxious and depressed. Affect is constricted. Thoughts are linear and logical. No evidence of psychosis. Client Response/Progress/Benefit: []Pt was an active participant in group discussions. Attentive during psychoeducation on 4 types of conflict styles (Competing, Collaborating, Avoiding, and Accommodating). Attentive as group worked to define conflict and identify how conflict is helpful. Pt worked with peers in identifying barriers to addressing or managing conflict which included: learned behaviors, fear of disappointing or upsetting others, fear of being hurt, past negative experiences with conflict, and shutting down. Pt believes his conflict style is avoidant with people he knows and more ?competing? with those he does not know well. Noted he often struggles to bring up difficult topics with those he is close with out of fear of damaging the relationship or reacting poorly. Benefited from group by increasing insight and awareness of conflict, conflict styles, and obstacles to managing conflict. Pt to continue IOP to continue use of healthy coping, improve independent coping and healthy communication skills, as well as prevent decompensation. Narrative Note: []
--- NOTE | 2021-06-28 10:10 | BH.SGPN.GN ---
Behaviors/Verbalizations/Mental Status: [] Eye contact is good. Motor activity is appropriate. Appearance is casual. Speech is Appropriate. Mood is anxious. Affect is congruent. Thoughts are linear and logical. No evidence of psychosis. Client Response/Progress/Benefit: [] Pt participated at times during group discussions. Attentive during psycho-education on 4 types of conflict styles (Competing, Collaborating, Avoiding, and Accommodating). Worked with group to define conflict and identify how conflict is helpful. With peers identified barriers to addressing or managing conflict which included: fear of upsetting others, embarrassing self, abandonment, past negative experiences with conflict, and shutting down. Pt believes his conflict style is competing with people he barely knows and avoidant in close relationships. Benefited from group due to increase insight and awareness of conflict, conflict styles, and obstacles to managing conflict. Will continue in IOP to maintain safety, increase healthy coping, preventing decompensation, and improve daily functioing. Narrative Note: []
--- NOTE | 2021-06-29 09:00 | BH.SGPN.GN ---
Behaviors/Verbalizations/Mental Status: [] Eye contact is good. Motor activity is appropriate. Appearance is casual. Speech is Appropriate. Mood is euthymic, slightly anxious. Affect is full. Thoughts are linear and logical. No evidence of psychosis. Reviewed daily check in sheet and no reports of suicidal ideations or intent. Client Response/Progress/Benefit: [] Pt was an active participant in group discussion. Attentive. Provided appropriate feedback. Mental health win identified as getting his garden together, planted yesterday, mowed the lawn and did the weed eater. Pt stated he felt really positive after getting so much done. Pt reported additional win as being happy to be at [facility]. Stated he is feeling anxious because worried his positive emotions won't last. Connected with feedback from peers about concerns of having a setback after finally feeling happy. Agreed it's important to allow himself to feel happy by using grounding tools to stay in the moment. Benefited from group support, encouragement, and feedback. Will continue in IOP to continue use of healthy coping skills, challenge negative thinking and prevent decompensation.
--- NOTE | 2021-06-29 10:07 | BH.SGPN.GN ---
Behaviors/Verbalizations/Mental Status: []Pt alert and oriented, casually dressed and groomed. Eye contact good. Motor activity appropriate. Speech within normal limits, limited input. Affect constricted, mood anxious and depressed. Thoughts linear, logical, no signs of hallucinations or delusions. Client Response/Progress/Benefit: []Pt responded well to session, attentive and participating in activity, though remained mostly passive throughout discussion. Pt nodding in connection to discussion on what fear of failure means and what contributes to the development of fear of failure. Group shared that the fear of failure can lead to isolation, self-sabotage, pushing people away, over-committing oneself, avoidance, and not asking for help. Pt expressed agreement that fear of failure can keep you from reaching goals and lead to staying ?stuck?. Pt appeared to benefit from gaining awareness of the impact fear of failure can have on one?s mental health and wellbeing. Will continue IOP tx to increase independence, improve mood stability, and increase daily functioning. Narrative Note: []
--- NOTE | 2021-06-29 11:08 | BH.SGPN.GN ---
Behaviors/Verbalizations/Mental Status: []Pt alert and oriented, casually dressed and groomed. Eye contact good. Motor activity appropriate. Speech within normal limits. Affect constricted, mood dysthymic. Thoughts linear, logical, no signs of hallucinations or delusions. Client Response/Progress/Benefit: []Pt responded well to session, engaged in the experiential activity and attentive throughout group processing. Pt reported fear of failure has kept pt from starting a new job. Pt completed fear of failure worksheet and was able to identify thoughts and behaviors that reinforce personal fear of failure including setting unrealistic goals, avoidance, jumping to conclusions, and distortions. Pt participated in small group discussion regarding strategies to overcome fear of failure. Identified wanting to work on using opposite action when he wants to avoid. Appeared to benefit from increased knowledge of strategies to combat fear of failure and gaining self-awareness. Pt will continue IOP tx to prevent decompensation, improve overall functioning, and increase emotional regulation skills. Narrative Note: []
--- NOTE | 2021-06-29 13:04 | BH.MDN ---
Multi-Disciplinary Note - Note 30-min Individual Time Started:: 12:05 Date: 06/29/21 Purpose of session/treatment goals addressed:: Purpose of session was to address goal 1 from MTP. Eye Contact:: Good Motor Activity:: Appropriate Appearance:: Casual Speech:: Appropriate Mood:: Euthymic Affect:: Congruent Thoughts:: Linear, Logical, No evidence of hallucinations/delusions noted Staff Interventions:: psychoeducation on: - self-care, CBT techniques, rapport building, strengths perspective, goal setting Client Response:: Client reported he has been afraid to say he is feeling better because he thinks things will start to go bad. Pt stated he has reverted to anger with his a couple times in the last few days but he was able to recognize it and apologize for his behavior. Client stated he has been more active throughout his day with getting out of bed and accomplishing tasks. Client reported he has accomplished his goals from last session to get one load of laundry done each day and set 3 intentions each morning. Client stated he has set his morning routine to get up at 7:30am even on the days he isn't going to [facility]. Client reported he hasn't been taking naps throughout the day in the last week. Client stated he is trying to use more direct communication with his by asking her to tell him what she would like from him versus him trying to guess. Client stated he has reached out to his friends to increase his social connections. Client reported he is starting to smile and laugh more than he has in a long time. Client reported he is already noticing positive changes with his marriage and with his kids. Client stated his has been reacting more positive to the changes he has made and is open to learning about what he has learned in [facility]. Client reported he is spending more time with his kids and is teaching them what he has learned so far in [facility]. Client stated he has been struggling with some impulsive urges to go back to work. Client reported he has history of getting excited about something then making a rash decision with poor follow through. Client stated he spent all weekend looking at potential jobs. Client reported he felt little discouraged when his wasn't supportive of him jumping into a job. Client stated after processing her feedback he recognizes he should wait until he shows consistent progress before trying to return to work. Connected with education on self-care. Agreeable to start practicing at least one self-care item per day. Will continue 3 daily intentions. Risks/Concerns:: denies suicidal/homicidal ideation, plan or intention to date. future focused. Progress Toward Goals/Plan:: Treatment progress noted with pt reporting improved mood, using healthy coping skills, being more active throughout the day, challenging negative perspective, and starting to improve relationships. Pt has awareness of impulsive urges to move to the next thing since feeling better. Recognizes importance of holding off finding a job until shows consistent progress. Pt to continue IOP to continue use of healthy coping, improve confidence and prevent decompensation. Time Stopped:: 12:35
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
--- NOTE | 2021-06-30 10:16 | BH.SGPN.GN ---
Behaviors/Verbalizations/Mental Status: []Client alert and oriented, casually dressed and groomed. Eye contact good. Motor activity appropriate. Speech within normal limits. Affect constricted, mood depressed and anxious. Thoughts linear, logical, no signs of hallucinations or delusions. Client Response/Progress/Benefit: []Client responded well to session AEB sharing when prompted and listening attentively to others. Client participated in group discussion defining boundaries and why having healthy boundaries is important. Client provided an example of the importance of healthy boundaries, stating ?boundaries can improve confidence and the way you feel about yourself?. Client appeared to connect to psychoeducation on types of boundaries, including physical, emotional, and intellectual. Client listened attentively and nodding throughout discussion in which group members shared personal examples of different types of boundaries. Client noted he has struggled with knowing how to set boundaries and what healthy boundaries actually look like as he had never been taught this. Client appeared to benefit from increased knowledge of the types of boundaries and increased self-awareness of personal boundaries. Will continue IOP treatment to increase depression management skills, improve use of self-compassion and independent coping skills to improve daily functioning. Narrative Note: []
--- NOTE | 2021-07-01 11:15 | BH.SGPN.GN ---
Behaviors/Verbalizations/Mental Status: [] Client alert and oriented, casually dressed and appropriately groomed. Eye contact good.. Motor activity WNL. Speech within normal limits. Affect constricted, mood euthymic. Thoughts linear and intact. no signs of delusions or hallucinations. Client Response/Progress/Benefit: [] Client responded well to session AEB listening attentively to peers and providing some input throughout. Client reported he struggles with setting boundaries with people that take more than they give in relationships. Asked for input from group on how to set boundaries with someone that is toxic or unhealthy. Client attentive during psychoeducation on the different boundary styles. Participated in small group discussion brainstorming various strategies for improving healthy personal boundaries. Client agreeable to complete provided worksheet for homework, in which he is to identify if he has porous, rigid or healthy boundaries for emotional, physical, intellectual, sexual, material, and time boundaries. Seemed to benefit from increased awareness of how different boundary styles can impact mental health. Will continue IOP tx to continue use of healthy coping skills, improve confidence and prevent decompensation.
--- NOTE | 2021-07-04 09:01 | BH.SGPN.GN ---
Behaviors/Verbalizations/Mental Status: [] Eye contact is fair. Motor activity is appropriate. Appearance is casual. Speech is Appropriate. Mood is euthymic, slightly anxious. Affect is congruent. Thoughts are linear and logical. No evidence of psychosis. Reviewed daily check in sheet and no reports of suicidal ideations or intent. Client Response/Progress/Benefit: [] Pt was an active participant in group discussion. Attentive. Provided appropriate feedback. Pt reported mental health positive as getting many tasks accomplished this weekend. Pt reported additional mental health positive as attending religion for the first time in a long time. Pt stated he's not sure religion is right for him but thought it was time to try different strategies/support out. Pt shared feeling frustrated that his support system is not encouraging him to jump into a career since he is feeling better. Pt stated he feels ready to go back to work, but others are encouraging him to finish IOP before jumping into a job. Pt admitted he does have hx of making impulsive, rash decisions. Pt agreed he could start taking steps towards getting back to work to be prepared for when he completes IOP. Benefited from group support, encouragement, and feedback. Will continue in IOP to continue use of healthy coping skills, increase confidence and prevent decompensation.
--- NOTE | 2021-07-04 11:10 | BH.SGPN.GN ---
Behaviors/Verbalizations/Mental Status: []Client alert and oriented, neatly dressed and groomed. Eye contact fair to good. Motor activity appropriate. Speech within normal limits. Affect constricted, mood euthymic. Thoughts linear, logical, no signs of hallucinations or delusions. Client Response/Progress/Benefit: []Pt responded well to session AEB taking notes and providing input and examples throughout. Group discussed the different categories of coping skills which included distraction, emotional release, grounding, self-love, and thought challenging. Pt created a coping skill menu identifying various skills to try in each category. Pt?s coping skill menu included: going outside, talking in therapy, meditation, standing up for himself, and opposite action. Appeared to benefit from increasing repertoire of healthy coping skills. Pt reports feeling less depressed, but pt has yet to see consistent mood stability for over two weeks. Pt will continue IOP tx to improve daily functioning, reduce negative thinking, and increase application of healthy coping skills. Narrative Note: []
--- NOTE | 2021-07-05 09:10 | BH.SGPN.GN ---
Behaviors/Verbalizations/Mental Status: [] Eye contact is good. Motor activity is appropriate. Appearance is casual. Speech is Appropriate. Mood is euthymic. Affect is full. Thoughts are linear and logical. No evidence of psychosis. Reviewed daily check in sheet and no reports of suicidal ideations or intent. Client Response/Progress/Benefit: [ Pt was an active participant in group discussion. Attentive. Emotion for today is hopeful. Mental health wins include cancelling a vacation that he booked impulsively several months back. He communicated with his family and they all agreed that cancelling would be the best choice financially. He shared why he views this as a mental health win. He is utilizing coping skills and starting to see the benefits. Skills that he uses most often is opposite-action. He shared his struggles with isolation and sleeping to cope/pass the time. He reports strong urges to go into his bedroom and go to sleep I can hear the comfy bed calling me name. Shared that this has been an unhealthy skills and often leads to sleeping throughout the day and feeling guilty which ultimately impacts his mood. Progress noted per pt report. Beneifted from group support, encouragement, and feedback. Will continue in IOP to prevent decompensation, stabilize mood, increase healthy skills, and improve functioning. Narrative Note: []
--- NOTE | 2021-07-05 10:12 | BH.SGPN.GN ---
Behaviors/Verbalizations/Mental Status: []Client alert and oriented, casually dressed and groomed. Eye contact good. Motor activity appropriate. Speech within normal limits. Affect congruent, mood euthymic. Thoughts linear, logical, no signs of hallucinations or delusions. Client Response/Progress/Benefit: []Client responded well to session AEB client listening attentively to others and taking notes. Client was engaged throughout discussion introducing the topic of self care and its importance. Client stated he didn't engage in self-care because he didn't think that he was worthy. Group identified myths about self care, such as self care is selfish, takes too much time, has to be fun, and has to be earned. Client discussed a myth about self-care being indulgent as a stereotype. Stated self-care can be things that are more indulgent like massages but self-care also encompasses many small things that don't cost a lot of money and aren't always fun things like cleaning. Client helped group identify benefits of self-care which included: improved mood, reduce stress, increased resilience, and help maintain stability. Client appeared to benefit from increased knowledge of the importance and benefits of self care. Will continue IOP treatment to increase social connection to supports and decrease feelings of hopelessness.
--- NOTE | 2021-07-05 11:20 | BH.SGPN.GN ---
Behaviors/Verbalizations/Mental Status: []Client alert and oriented, casually dressed and groomed. Eye contact good. Motor activity appropriate. Speech within normal limits. Affect congruent, mood anxious and euthymic. Thoughts linear, logical, no signs of hallucinations or delusions. Client Response/Progress/Benefit: []Client engaged participant AEB completing self-assessment worksheet and contributing input during discussion. Participated throughout group discussion on the various areas of self-care, benefits, and types of self-care activities for each area. Client completed worksheet which identified current self-care practices and what self-care activities client wants to start using. Client selected financial and spiritual self-care as an area to begin practicing more consistently. Client plans to do this by creating a healthy financial plan/budget to both pay off debt as well as maintain current financial stability. Client reports doing well with social self-care and would like to continue to focus on maintaining self-care in this area by consistently making time for his family and his . Appeared to benefit from completing the self-care evaluation and gaining insights into current self-care practices, as well as identifying areas in which she would like to improve upon. Will continue IOP tx to continue to promote mood stability, improve depression management and consistent skill application, as well as prevent decompensation. Narrative Note: []
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
--- NOTE | 2021-07-07 10:10 | BH.SGPN.GN ---
Behaviors/Verbalizations/Mental Status: []Pt alert and oriented, casually dressed and groomed. Eye contact good. Motor activity appropriate. Speech within normal limits. Affect congruent, mood euthymic. Thoughts linear, logical, no signs of hallucinations or delusions. Client Response/Progress/Benefit: []Pt responded well to session AEB sharing and listening attentively to others. Group provided examples of benefits of having social support, including: validation, increased resilience, and better symptom management. Pt also participated in group discussion regarding the barriers to accessing support including personal examples like: making assumptions, not reaching out, and strong beliefs that prevent pt from being vulnerable. Pt participated in experiential activity illustrating the impact communication, boundaries, and patience play in creating healthy support systems. Pt appeared to benefit from increased knowledge of the benefits of social support and greater self-awareness. Will continue IOP tx to promote distress tolerance skills, further reduce isolation, and increase application of self-care. Narrative Note: []
--- NOTE | 2021-07-07 11:10 | BH.SGPN.GN ---
Behaviors/Verbalizations/Mental Status: []Pt alert and oriented, casually dressed and groomed. Eye contact good. Motor activity appropriate. Speech within normal limits. Affect congruent, mood euthymic. Thoughts linear, logical, no signs of hallucinations or delusions. Client Response/Progress/Benefit: []pt was an active participant throughout AEB contributing to discussion, providing personal examples, and taking notes. Pt provided input during discussion on the types of support our supports can provide. Pt able to identify current support system and barriers that get in the way of using supports. Pt reported after identifying what type of supports pt receives, pt gained awareness that pt could benefit from more tangible support. Pt wants to work on asking for help with things at home and being vulnerable rather than ?thinking asking for help means I?m lacking something.? Pt shared this would reduce anxiety and improve his overall mental health and relationships. Pt seemed to benefit from identifying the type of support pt needs to work on improving. Pt recommended to continue IOP tx to promote the use of healthy coping skills, reduce distortions, and increase distress tolerance skills. Narrative Note: []
--- NOTE | 2021-07-12 09:00 | BH.SGPN.GN ---
Behaviors/Verbalizations/Mental Status: [] Eye contact is good. Motor activity is appropriate. Appearance is casual. Speech is Appropriate. Mood is euthymic. Affect is full. Thoughts are linear and logical. No evidence of psychosis. Reviewed daily check in sheet and no reports of suicidal ideations or intent. Client Response/Progress/Benefit: [] Pt was an active participant in group discussion. Attentive. Emotion for today is tired and hopeful. Mental health wins included being more social around family been feeling better compared to when I started the program. 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 Shared the coping skills that he utilized to manage through stressors. Feels that he is less reactive and is making more thought-out decisions. These changes have helped with relationships as well. Progress noted per pt report. Benefited from group support, encouragement, and feedback. Will continue in IOP to prevent decompensation, stabilize mood, and improve functioning. Narrative Note: []
--- NOTE | 2021-07-12 11:15 | BH.SGPN.GN ---
Behaviors/Verbalizations/Mental Status: []Client alert and oriented, casually dressed and groomed. Eye contact good. Motor activity appropriate. Speech within normal limits. Affect congruent, mood euthymic. Thoughts linear, logical, no signs of hallucinations or delusions. Client Response/Progress/Benefit: []Client responded well to session, attentive. Did well to process activity and work with group to relate the strategies used to overcome barriers in the activity to managing change in own life. Client identified a change would like to make is staying more in the present moment vs letting anxious projections rand him of the here and now. Client stated currently in action stage. Reported would like to practice mindfulness to improve being in the here and now. Appeared to benefit from identifying a small goal to work towards. Client will continue IOP tx to prevent decompensation, gain healthy coping skills, and improve daily functioning.
== END 2021-07-12 23:59 ==
LOC: BHIOP 08:00
PROVIDERS: Referring Provider Psychiatry & Neurology Psychiatry; Visit Provider Psychiatry & Neurology Psychiatry
DX: F33.2 Major depressive disorder, recurrent severe without psychotic features (principal); F41.0 Panic disorder [episodic paroxysmal anxiety]; F43.10 Post-traumatic stress disorder, unspecified; G47.33 Obstructive sleep apnea (adult) (pediatric); E66.9 Obesity, unspecified; Z79.899 Other long term (current) drug therapy; L40.9 Psoriasis, unspecified; M19.90 Unspecified osteoarthritis, unspecified site
CPT/HCPCS: 90792; H2012; H2020; S9480; T1002; 90832; 90837

== ENCOUNTER 2021-07-13 07:24 | Outpatient (RCR) | payer MEDICAID, SELFPAY ==
[2021-07-13 01:14] VITALS: BP 129/87; PULSE 99
--- NOTE | 2021-07-13 10:13 | BH.SGPN.GN ---
Behaviors/Verbalizations/Mental Status: []Client alert and oriented, casually dressed and groomed. Eye contact good. Motor activity appropriate. Speech within normal limits. Affect congruent, mood euthymic. Thoughts linear, logical, no signs of hallucinations or delusions. Client Response/Progress/Benefit: []Client responded well to session AEB sharing, taking notes, and listening attentively to others. Client participated in activity illustrating how perspective affects mental health. Client participated in group discussion on what shapes our perspective, contributing environment and mood as examples. Client appeared connected to psychoeducation on how our thoughts and attitude can become ?lenses? that we see the world through. Participated in group discussion reviewing how these lenses affect mental health treatment, stating that a negative perspective could cause someone to become impatient with the treatment process and be more likely to give up as a result. Shared his current perspective as overall hopeful, noting that this has improved sense of self-worth and ability to manage anxiety and depression. Client appeared to benefit from increased knowledge of perspective and how mental health can impact or be impacted by one?s perspective. Will continue IOP treatment to improve consistency of mood management skills, prevent decompensation, and maintain stability. Narrative Note: []
--- NOTE | 2021-07-13 11:15 | BH.SGPN.GN ---
Behaviors/Verbalizations/Mental Status: []Pt alert and oriented, casually dressed and groomed. Eye contact good. Motor activity appropriate. Speech within normal limits. Affect congruent, mood euthymic. Thoughts linear, logical, no signs of hallucinations or delusions. Client Response/Progress/Benefit: []Pt was attentive and contributed in small and larger group discussion. Pt completed strengths exploration worksheet and identified personal strengths to include: empathy, social awareness, common sense, and confidence. Pt shared that working to recognize these personal strengths more consistently will help improve pt?s mood and help pt practice self-compassion. Shared wanting to focus on fostering personal strengths by setting goals to remind himself of strengths through actions. Also identified barriers for acknowledging and using strengths. Benefited from identifying personal strengths and strategies for enhancing use of identified strengths. Pt to continue IOP tx to promote mood stability, increase emotional regulation skills, and further reduce depressive symptoms. Narrative Note: []
--- NOTE | 2021-07-13 11:55 | PCM.BH.PN ---
Progress Note Progress Note: History of Present Illness/Interim History: [] The patient is a 40-year-old male who is seen in follow-up at the [facility] behavioral health IOP program where he is being seen for depression, anxiety and PTSD. I last saw the patient 3 weeks ago and at that time Wellbutrin XL was started and his prazosin was increased in dosage. The patient is tolerating the medication changes well. He feels that the Wellbutrin has helped his mood improved tremendously. He feels 100% better. He feels much less depressed and has had the energy and motivation to make some plans for his future. He is able to participate in more activities with his family. His sleep is good at about 8 to 9 hours a night. He has not had any panic attacks in several weeks. He denies any passive thoughts of , hopelessness, worthlessness, plan for suicide, suicidal ideation, homicidal ideation, hallucinations or delusions. No symptoms of neno. 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 Increasing the prazosin is also help with nightmares. Current Psychiatric Medications: [] Risperdal 2 mg p.o. daily (times almost 4 months); Effexor XR 150 mg p.o. twice a day (for years); prazosin 2 mg p.o. nightly (dose increased 3 weeks ago); Wellbutrin XL 150 mg p.o. every morning (x3 weeks now). Mental Status Examination: [] Patient is a 40-year-old overweight male who is ambulatory with a normal gait and appears normal for stated age and is casually dressed and groomed with good hygiene. He has no psychomotor agitation or retardation. He is cooperative and pleasant during the interview. Eye contact is good and speech is normal rate and rhythm and fluent with no pressure. Mood is minimally depressed to euthymic. Affect is full and normal. Thought process is goal-directed and organized. Thought content: There is no evidence of passive thoughts of , active or passive suicidal ideation, plan for suicide, hallucinations, or paranoia. There is no evidence of homicidal ideation or symptoms of neno. Reality testing is intact. Judgment is intact. Insight is good. Impulsivity is moderate. Diagnoses: [] 1. Major depressive disorder, recurrent, severe without psychosis (resolving) 2. Panic disorder 3. PTSD 4. Obstructive sleep apnea: Using CPAP 5. Obesity 6. Primary support and work issues Plan: [] The patient will continue the IOP program in behavioral health at [facility] as the structure, support, education and group therapy will hopefully prevent worsening of the patient's symptoms which could require hospitalization. The patient felt safe during the interview and if it anytime he does not feel safe he will let us know or go to the emergency room. The risk, options, possible complications and side effects of the medications were again discussed with the patient and he understands accepts these. No medication changes were made today. He will continue his medications at their current doses. Discussion was had that when he next sees his outpatient psychiatric provider that the Effexor XR could be considered to be slowly weaned since he has been on it for many years and at least a lower dose might be adequate now. He understands he should never stop his Effexor as it can be difficult to get off it. Prescriptions were sent in for refill for the Wellbutrin XL.
--- NOTE | 2021-07-13 13:36 | BH.MTP_ITS ---
Treatment Plan Review Date of Admission:: 06/21/21 Date of Treatment Plan Review:: 07/13/21 Admitting Diagnoses:: 1. Major depressive disorder, recurrent, severe without psychosis. 2. Panic disorder. 3. PTSD Current Diagnoses:: 1. Major depressive disorder, recurrent, severe without psychosis (resolving). 2. Panic disorder. 3. PTSD Patient's Response to Treatment:: Client responding well to program AEB consistent attendance, contributions to group discussion, and applying skills outside treatment environment. Client engaged, cooperative and provides helpful feedback to others. Status of Current Problems and Symptoms: Client reporting significant improvement in mental health symptoms since starting IOP. Client recently has been struggling with urge to stop IOP so he can go to classes to get his [employer] license. Client is choosing to stay in IOP because supports are encouraging him to complete program to show self he can maintain progress. Client expresses excitement he is finally feeling stable and healthy enough to find a job after being off for 3 years. Client still reports occasional depressed mood and anxiety. Client's mental health symptoms have decreased in intensity, duration, and frequency. Problem #1 Problem Name:: Depression Status of Goals:: Obj 1. Goal met, ongoing work encouraged. Client is able to identify healthy coping skills like opposite action, belly breathing, taking time for self care, and setting daily goals. Client has been using his skills outside treatment environment. Obj 2 - goal met, ongoing work encouraged. Per DSM 5 at review scores indicate a 62.5% in depressive symptoms compared to at intake. Team Recommendations:: Team recommends client continue current goals and obje ctives to ensure client is able to maintain current progress. Client expresses desire to complete IOP early due to his quick progress but client does recognize he has hx of making impulsive decisions. Team recommends encouraging client to complete program to help him prepare to return to working after 3 years of being off. Problem #2 Problem Name:: Anxiety Status of Goals:: obj 1 - goal met, ongoing work encouraged. Client able to identify belly breathing, guided meditation, and grounding as calming skills that have helped him manage anxiety. Obj 2 - goal met, ongoing work encouraged. Per client's DSM 5 scores indicate a 55% decrease in anxiety at review. Team Recommendations:: Team recommends client continue current goals and objectives to ensure client is able to maintain current progress. Client expresses desire to complete IOP early due to his quick progress but client does recognize he has hx of making impulsive decisions. Team recommends encouraging client to complete program to help him prepare to return to working after 3 years of being off.
--- NOTE | 2021-07-14 10:20 | BH.SGPN.GN ---
Behaviors/Verbalizations/Mental Status: []Pt alert and oriented, casually dressed and groomed. Eye contact good. Motor activity appropriate. Speech within normal limits. Affect congruent, mood dysthymic, agitated. Thoughts linear, logical, no signs of hallucinations or delusions. Client Response/Progress/Benefit: [] Pt responded well to session AEB contributing to discussion, taking notes, and listening attentively to others. Group discussed the benefits of managed anger and anger as a secondary emotion. Pt completed anger iceberg worksheet, reporting outward personal signs of anger as shutting down, isolating, and short responses. Identified underlying emotions that contribute to anger including change, daily stress, disappointment, and trauma. Appeared to benefit from increased knowledge of the underlying emotions that impact anger and increased self-awareness of the internal and external consequences of anger. Will continue IOP tx to prevent decompensation, as well as increase the use of healthy coping skills and thought challenging to improve mood stability. Narrative Note: []
--- NOTE | 2021-07-14 15:24 | BH.MDN_ITS ---
Multi-Disciplinary Note - Note 60-min Individual Time Started:: 09:08 Date: 07/14/21 Purpose of session/treatment goals addressed:: Purpose of session was to address goals 1 and 2 from [facility]. Eye Contact:: Fair Motor Activity:: Restless Appearance:: Casual Speech:: Appropriate Mood:: Anxious, Depressed Affect:: Constricted Thoughts:: Linear, Logical, No evidence of hallucinations/delusions noted Staff Interventions:: thought challenging, CBT techniques, mindfulness skills - in session guided meditation, strengths perspective, goal setting, taught coping skills Client Response:: Client reported he is struggling today because he had a bad day yesterday. Client stated at his son's birthday lunch with his 's family he was triggered when noticed his [id number] gave his a nondenominational handout. Client reported at the time he didn't realize that he was triggered and shut down. 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 Client stated this required him to deal with difficult people on the phone and be on hold frequently. Client reported looking back he realizes he should have only did one or two of the calls instead of trying to do all of the calls in one day. Client stated he was frustrated while on one of his calls and became angry with his son when his son made a sarcastic comment. Client reported he did not handle the situation very well and is feeling guilty today about his reaction. Client stated he also feels guilty because he become engrossed on finishing the list of calls that he didn't take time to spend with his son on his son's birthday. Client reported his son made the comment this is the worst birthday ever at the end of the night. Client stated he feels defeated and depressed today. Client reported all night he was ruminating if he had made any progress and questioning whether he is ready to go back to work now. Client stated had lots of negative thought patterns and was struggling with challenging any of the thoughts. Client receptive to thought challenge from therapist. Agreed this setback was a good thing because prior to yesterday he was ready to quit the program and go to work since feeling so much better. Client stated this situation has helped him see the importance of sticking to the program and showing maintenance of skills. Receptive to developing plan of action for today to help prevent self from slipping further into depressed mood. Client stated guided meditation in session helped decrease his anxiety. Risks/Concerns:: Denies suicidal ideation, plan or intention to date. future foc used. Progress Toward Goals/Plan:: Pt reporting slight decompensation in mood due to recent setback. Pt's negative and distorted thought patterns impacted pt's ability to challenge thoughts. Pt's negative thoughts that he hasn't made progress and won't be able to maintain progress have returned. Pt receptive to challenging thoughts in session and perspective seemed to change during session. Plan is for pt to continue IOP to prevent further decompensation, increase consistent use of healthy coping and challenge negative thoughts. Time Stopped:: 10:08
--- NOTE | 2021-07-19 09:00 | BH.SGPN.GN ---
Behaviors/Verbalizations/Mental Status: []Client alert and oriented, casually dressed and groomed. Eye contact good. Motor activity appropriate. Speech within normal limits. Affect normal, mood euthymic. Thoughts linear, logical, no signs of hallucinations or delusions. Reviewed pt?s symptom tracker, no risk for suicidal ideation, plan, or intent as of 07/19/21 Client Response/Progress/Benefit: []Client responded well to session with being attentive and providing supportive feedback. Client reflected on his past week and it's difficulties. Client shared how he was able to look at difficulties as a way of gaining insight into himself and his progress. Client reported getting overly confident in progress in tx, but recently got a reality check of a unplanned stressor. Client identified how he pro-socially handled it compared to the past instances. Client identified himself as being more grounded now and self aware. Appeared to benefit from reflecting on his growth. Will continue IOP tx to improve daily functioning and maintain gains. Client is scheduled to be discharged from tx next week. Narrative Note: []
--- NOTE | 2021-07-20 10:13 | BH.SGPN.GN ---
Behaviors/Verbalizations/Mental Status: []Eye contact is good. Motor activity is appropriate. Appearance is casual. Speech is Appropriate. Mood is euthymic. Affect is congruent. Thoughts are linear and logical. No evidence of psychosis. Client Response/Progress/Benefit: []Pt participated throughout, providing input and examples. Attentive during psychoeducation on different anxiety disorders and participated throughout interactive discussion defining anxiety and identifying cognitive and physiological symptoms of anxiety. Common cognitive symptoms identified by group included: ?what if thoughts?, ?fear of failure?, and predicting the future type thoughts. Physiological symptoms reported by patient included: GI issues, restlessness, and sweating. Benefited from increased awareness and insight on anxiety and its impact. Plan is to continue in IOP to maintain stability, increase consistency of healthy coping, and prevent decompensation. Narrative Note: []
--- NOTE | 2021-07-20 14:19 | BH.MDN_ITS ---
Multi-Disciplinary Note - Note 45-min Individual Time Started:: 09:00 Date: 07/20/21 Purpose of session/treatment goals addressed:: Purpose of session was to address goal 1 and 2 from [facility]. Eye Contact:: Good Motor Activity:: Appropriate Appearance:: Casual Speech:: Appropriate Mood:: Euthymic Affect:: Congruent Thoughts:: Linear, Logical, No evidence of hallucinations/delusions noted Staff Interventions:: CBT techniques, mindfulness skills, discharge planning, strengths perspective, goal setting Client Response:: Client reported he was able to bounce back after having his setback last week. Client stated the setback helped him realize he needs to set more realistic expectations. Client reported he was overconfident that he wouldn't need to finish IOP but realizes now that it's a good thing he had a setback last week. Client reported he wants to set his expectations of being stable versus having perfection expectations. Client stated this week he has had a lot of bad stuff happen. Client reported he was able to manage these stressors more effectively compared to a few weeks ago. Client stated he was able to think things through more clearly versus being reaction. Client reported breathing and being mindful of his perspective have been strategies that help him manage emotions in the moment. Client stated able to note progress in how he manages situations. 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 Client stated feels excited about the interview and is excited about getting back to work. 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 Client agreeable to start working on provided maintenance plan. Risks/Concerns:: Denies suicidal ideation, plan or intention to date. future focused. Progress Toward Goals/Plan:: Progress noted AEB client reported ability to bounce back from a setback from last week. Client reporting more consistent use of breathing skills and adjusting his perspective. Client recognizing importance of having more realistic expectations about his progress. Client expresses excitement about upcoming job interview. Rodriguez reported feeling ready to return to work. Plan is for client to discharge from IOP next week. Time Stopped:: 09:45
--- NOTE | 2021-07-21 09:08 | BH.SGPN.GN ---
Behaviors/Verbalizations/Mental Status: []Client alert and oriented, casually dressed and groomed. Eye contact normal. Motor activity appropriate. Speech within normal limits. Affect congruent, mood euthymic. Thoughts linear, logical, no signs of hallucinations or delusions. Reviewed client's symptom tracker, no risk for suicidal ideation, plan, or intent as of 07/21/21 Client Response/Progress/Benefit: []Client responded well to session with discussing triggers and achievements. Client reported emotion of the day as determined. Client shared with group frustration he had felt day prior at his child's event and desire to speak up without letting anger drive conversation. Client was able to process with other group members techniques to ensure assertive communication. Client shared that he has two job interviews that he is hopeful about. Appeared to benefit from reflecting on progress and providing/getting validation from other group members. Will continue IOP tx with scheduled discharge next week to maintain gains and prevent decompensation. Narrative Note: []
--- NOTE | 2021-07-21 10:20 | BH.SGPN.GN ---
Behaviors/Verbalizations/Mental Status: []Eye contact is good. Motor activity WNL. Appearance is casual. Speech is Appropriate. Mood is euthymic and anxious. Affect is congruent, bright. Thoughts are linear and logical. No evidence of psychosis. Client Response/Progress/Benefit: []Pt engaged and actively participating throughout group discussions and psychoeducation on managing emotions. Contributed as group identified obstacles or potholes that hinder our ability to communicate in stressful situations. Pt noted trying to communicate a lot at once or misinterpreting texts as a personal pothole. Group identified the following additional obstacles; assumptions, shutting down, misinterpreting someone?s communication style, personalizing, and trying to communicate too much information at once. Pt provided insight on how awareness of your own perception and emotion about a situation can help improve emotion regulation and overall communication. Pt was engaged during the activity, taking on both a leadership role as well as supporting others in the group setting. Benefited from increased awareness on how our emotions impact our communication. Will continue in IOP to prevent decompensation, continue to encourage consistent healthy coping skill application, and improve daily functioning. Narrative Note: []
--- NOTE | 2021-07-26 10:05 | BH.SGPN.GN ---
Behaviors/Verbalizations/Mental Status: [] Client alert and oriented, casually dressed and groomed. Eye contact good. Motor activity appropriate. Speech within normal limits. Affect congruent, mood euthymic, Thoughts linear, logical, no signs of hallucinations or delusions. Client Response/Progress/Benefit: []Client was well engaged in group AEB taking notes and participating in the activity. Attentive during psychoeducation and discussed the importance of goal-setting with the group. Group identified potential benefits of having goals include: they motivate, build self-confidence, and give a sense of accomplishment. Group also worked together to identify barriers to goal-setting which included; avoidance, lack of motivation, unrealistic expectations, and all or nothing thinking. Client shared hard work goes into completing goals and shared how prioritizing is an important step when setting goals. Discussed lack of confidence as personal struggle with completing goals and not setting too high of expectations. Benefited from increased awareness of benefits and barriers to goal-setting. Will continue IOP tx with scheduled discharge this week to maintain progress towards goals and create maintenance plan. Narrative Note: []
--- NOTE | 2021-07-26 11:05 | BH.SGPN.GN ---
Behaviors/Verbalizations/Mental Status: []Pt alert and oriented, neatly dressed and groomed. Eye contact good. Motor activity appropriate. Speech within normal limits. Affect congruent, mood euthymic. Thoughts linear, logical, no signs of hallucinations or delusions. Client Response/Progress/Benefit: []Pt was an active participant in group discussions and activities. Engaged in activity. Pt identified a SMART goal for the next week is to: establish a written maintenance plan for when pt completes IOP before this . Identified actively choosing not to do it, lack of time, and forgetting as potential barriers to completing this goal. Pt able to identify several solutions, such as opposite action, prioritizing, and setting reminders on his phone that can help overcome identified barriers. Benefited from group by being able to utilize SMART educate to create a goal. Pt to continue IOP tx to reinforce healthy coping skills and establish aftercare plan. Narrative Note: []
--- NOTE | 2021-07-27 10:10 | BH.SGPN.GN ---
Behaviors/Verbalizations/Mental Status: []Pt alert and oriented, neatly dressed and groomed. Eye contact good. Motor activity appropriate. Speech within normal limits. Affect congruent, mood euthymic. Thoughts linear, logical, no signs of hallucinations or delusions. Client Response/Progress/Benefit: []Pt engaged during session AEB Pt contributing thoughts throughout discussion and completing worksheet. Connected with discussion on crisis and how coping with external crises by using unhealthy coping skills could result in a personal crisis. Group reflected on the importance of having awareness of personal warning signs to prevent reaching crisis point. Group identified potential warning signs for crisis and Pt completed the personal warning signs worksheet. Pt identified personal crisis warning signs to include: excessive use of his phone or laptop, laying in bed more, and increased conflict with his . Pt benefited by increasing awareness of what leads to crisis and personal warning signs. Pt will continue IOP tx for one more day to promote gains and review aftercare plan. Narrative Note: []
--- NOTE | 2021-07-27 14:48 | BH.MDN ---
Multi-Disciplinary Note - Note 60-min Individual Time Started:: 12:10 Date: 07/27/21 Purpose of session/treatment goals addressed:: Purpose of session was to address goals 1 and 2 from [facility]. 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 Client stated he is starting to feel anxious about being able to maintain all his progress when he starts back to work since he hasn't worked in 3 years. Client wanted to focus on creating a returning to work plan. Client identified potential triggers about returning to work. Client stated he has to be mindful about his thought process and perspective because he can easily get negative. Client reported he has noticed himself already having negative thoughts that he won't be able to manage the changes and it will be too hard. Client worked with therapist to identify strategies and skills that he can utilize to manage some of his warning signs when returns to work. Client agreeable to finish maintenance plan tonight and will check in with therapist tomorrow for last day. Risks/Concerns:: denies suicidal ideation, plan or intention to date. future focused. Progress Toward Goals/Plan:: Progress noted AEB client's report of improved mood, decreased negative thinking, increase awareness, utilization of healthy coping skills more consistently, and improved daily functioning. Client able to get a job for the first time in 3 years. Client expresses anxiety about returning to work but does believe having structure and routine will improve his mood. Client starting to have some negative thoughts about being able to maintain treatment progress but has set up aftercare with outpatient providers to help with maintenance. Plan is for client to discharge from [facility] tomorrow. Time Stopped:: 13:10
--- NOTE | 2021-07-28 09:00 | BH.SGPN.GN ---
Behaviors/Verbalizations/Mental Status: []Pt alert and oriented, casually dressed and groomed. Eye contact good. Motor activity appropriate. Speech within normal limits. Affect congruent, mood euthymic. Thoughts linear, logical, no signs of hallucinations or delusions. Reviewed pt?s symptom tracker, no risk for suicidal ideation, plan, or intent as of 07/28/21 Client Response/Progress/Benefit: []Pt responded well to session, providing supportive feedback. Pt reports feeling excited and a little sad this morning as it is pt's last day of IOP tx. Pt shared the program benefitted him a lot and helped pt develop a hopeful perspective again. Pt starts a new job on Sunday of next week which pt is looking forward to, but also a little anxious about. Pt shared overall, he feels more able to handle stressors and adjust to changes in life. Pt appeared to benefit from reflecting on his growth and connecting with peers. Pt will discharge from IOP tx today as pt has accomplished his tx goals and no longer meets criteria for IOP level of care. Narrative Note: []
--- NOTE | 2021-07-28 15:22 | BH.DS ---
Discharge Summary - Demographics Date of Admission:: 06/21/21 Discharge Date: 07/28/21 Presenting Problems at Admission:: Pt has hx of depression, anxiety, and PTSD referred to IOP by outpatient counselor for worsening symptoms of depression and daily panic for the past few years. Pt?s threatened to divorce pt if he did not get more help. Pt?s mental health has impacted his ability to work and has been on disability for the last two years. Pt endorses depressed mood with increased irritability, isolation, low motivation, anhedonia, low energy, decreased concentration, feelings of hopelessness and worthlessness. Pt lays in bed most days and doesn?t accomplish much throughout the day. Pt has daily panic attacks for last two years. Discharge Diagnoses:: 1. Major depressive disorder, recurrent, severe without psychosis (resolving) F33.2. 2. Panic disorder. 3. PTSD Reason for Discharge:: Client has made significant treatment progress and no longer meets criteria for IOP level of care. - Treatment Progress During Treatment & Response: Progress noted AEB client's DSM 5 scores at discharge which indicate a 75% in depression, 44% decrease in anxiety, 100% decrease in thoughts of hurting self, and an overall 63% symptom reduction. Client responded well to program AEB consistent attendance, providing feedback during group discussions and applying skills learned from individual and group therapy. Issues Still to be Addressed:: Client will be starting a job next week after being off work for 3 years, he could benefit from anxiety management, maintaining self-care, and challenging negative thoughts. Reinforcement of skills learned throughout IOP will be helpful. Discharge Recommendations/Instructions:: 1. Josef Muhammad on evenings for counseling. 2. Client will contact [facility] for medication management Discharge Handout: Complete Discharge Handout with client on aftercare options and continuity of care.
--- NOTE | 2021-07-28 15:50 | BH.MDN_ITS ---
Multi-Disciplinary Note - Note 30-min Individual Time Started:: 12:05 Date: 07/28/21 Purpose of session/treatment goals addressed:: Purpose of session was to identify treatment progress, complete maintenance plan and solidify aftercare plans. Eye Contact:: Good Motor Activity:: Appropriate Appearance:: Casual Speech:: Appropriate Mood:: Euthymic Affect:: Full Thoughts:: Linear, Logical, No evidence of hallucinations/delusions noted Staff Interventions:: CBT techniques, discharge planning, strengths perspective, reviewed DSM-5, other - completed maintenance plan Client Response:: Client reported yesterday he reviewed the return to work plan with his . Client stated he communicated what she can do to help support him when he talks negatively about his job. 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 Client reported he was receptive to her feedback and agreed that would be setting himself up for failure. Client stated since starting IOP he has made significant amount of progress with decreased depression, improved daily functioning, improved perspective, and improved relationships. Client reported the skills he has learned has made him feel more equipped to manage life stressors which is why he feels ready to start work after being off for 3 years. Client worked with therapist to complete maintenance plan. Client stated for aftercare he will be seeing his already established therapist Josef Muhammad weekly. Client reported he has wants to switch psychiatry providers from the [facility] to a different place. Therapist provided client with referrals to other locations for psychiatry. Client reported he would return to [facility] for medication management until he can get established at a new place. Risks/Concerns:: Denies suicidal ideation, plan or intention to date. Future focused. Progress Toward Goals/Plan:: Progress noted AEB client reporting improved daily functioning, improved relationships, increased use of healthy coping skills, improved communication, and able to challenge negative thoughts more effectively. Client worked with therapist to create his return to work plan and maintenance plan. Client feels ready for discharge and is starting a new job next week after not working for 3 years due to mental health problems. Plan is to follow up with already established providers for outpatient counseling and psychiatry. Client will see Josef Muhammad for counseling on evenings. Plan is for client to discharge from [facility] today. Time Stopped:: 12:30
--- NOTE | 2021-07-29 11:47 | BH.MDN ---
Multi-Disciplinary Note - Note 60-min Individual Time Started:: 09:08 Date: 07/14/21 Time Stopped:: 10:08
== END 2021-07-28 12:22 | disposition home or self-care (01) ==
LOC: BHIOP 07:24
PROVIDERS: Referring Provider Psychiatry & Neurology Psychiatry; Visit Provider Psychiatry & Neurology Psychiatry
DX: F33.2 Major depressive disorder, recurrent severe without psychotic features (principal); F41.0 Panic disorder [episodic paroxysmal anxiety]; F43.10 Post-traumatic stress disorder, unspecified; G47.33 Obstructive sleep apnea (adult) (pediatric); E66.9 Obesity, unspecified
CPT/HCPCS: 99213; H2012; H2020; S9480; 90832; 90834; 90837

== ENCOUNTER → 2022-02-20 | Outpatient (CLI) | payer MEDICARE, MEDICAID, SELFPAY ==
[2022-02-20 15:20] LABS: Absolute Lymphocyte Count 3.11 X10^3/uL (0.83-4.51); Absolute Neutrophil Count 6.3 X10^3/uL (2.0-7.7); Basophil# 0.05 X10^3/uL; Basophil% 0.5 % (0-1); Hematocrit 41.1 % (40-54); Hemoglobin 14.5 g/dL (13.0-16.5); Lymphocyte # 3.11 X10^3/ul (0.83-4.51); Lymphocyte % 30.4 % (19-41); Mean Corp Hgb Conc 35.3 g/dL (32-36); Mean Corpuscular Hgb 30.6 pg (27.0-32.0); Mean Corpuscular Volume 86.7 fL (80-94); Mean Platelet Vol. 12.1 fl (6.2-12.0); Monocyte# 0.78 X10^3/uL; Monocyte% 7.6 % (0-10); NRBC Flagged by Analyzer 0 % (0-5); Neutrophil # 6.25 X10^3/uL (2.7-7.7); Platelet Count 195 K/mm3 (150-450); RBC Distribution Width SD 40.9 fl (35.1-43.9); Red Blood Count 4.74 M/mm3 (4.6-6.2); White Blood Count 10.2 K/mm3 (4.4-11.0)
[2022-02-20 15:34] LABS: AST(SGOT) 33 U/L (15-37); Alanine Aminotransfer ALT/SGPT 74 U/L (16-61); Albumin, Serum 3.7 g/dL (3.2-5.0); Alkaline Phosphatase 97 U/L (45-117); Anion Gap 8 (5-15); BUN 9 mg/dL (7-18); BUN/Creat Ratio 10.3 RATIO (10-20); Calcium,Total 8.8 mg/dL (8.5-10.1); Chloride 102 mmol/L (98-107); Cholesterol 177 mg/dL (200); Creatinine, Serum 0.88 mg/dL (0.70-1.30); EST Glomerular Filtration Rate 103 mL/min (>60); Est Glom Filt Rate - Afr Amer 124 mL/min (>60); Globulin 3.7 g/dL (2.2-4.2); Glucose 66 mg/dL (74-106); High Density Lipoprotein 34 mg/dL; Potassium 3.9 mmol/L (3.5-5.1); Protein, Total 7.4 g/dL (6.4-8.2); Sodium Level 140 mmol/L (136-145); Triglycerides 293 mg/dL; Very Low Density Lipoprotein 59 mg/dL (5-40)
[2022-02-20 16:09] LABS: Hepatitis B Surface Antibody Reactive; Hepatitis B Surface Antigen Non-Reactive (Nonreactive); Hepatitis C Antibody Non-Reactive (Nonreactive)
[2022-02-22 18:07] LABS: QNTFERON TB Mitogen Value > 10.00 IU/mL (.); QNTFERON TB Nil Value 0.76 IU/mL (.)
[2022-02-22 21:01] LABS: Hepatitis B Core Ab Total Negative (Negative); QNTIFERON TB Positive Criteria Negative (Negative)
== END | disposition home or self-care (01) ==
PROVIDERS: PCP Family Medicine; Referring Provider Dermatology Pediatric Dermatology; Visit Provider Dermatology Pediatric Dermatology
DX: L40.0 Psoriasis vulgaris (principal); Z79.622 Long term (current) use of Janus kinase inhibitor
CPT/HCPCS: 36415; 80053; 80061; 85025; 86480; 86704; 86706; 86803; 87340

== ENCOUNTER 2023-10-31 12:19 | Emergency (ER) | payer OTHER, SELFPAY ==
[2023-10-31 12:20] VITALS: BP 121/88; PULSE 106; RESP 16; TEMP 36.6; O2SAT 93; BMI 44.9
[2023-10-31 13:39] LABS: Absolute Lymphocyte Count 2.31 X10^3/uL (0.83-4.51); Absolute Neutrophil Count 7.2 X10^3/uL (2.0-7.7); Basophil# 0.04 X10^3/uL; Basophil% 0.4 % (0-1); Hematocrit 47.6 % (40-54); Hemoglobin 16.6 g/dL (13.0-16.5); Lymphocyte # 2.31 X10^3/ul (0.83-4.51); Lymphocyte % 22.5 % (19-41); Mean Corp Hgb Conc 34.9 g/dL (32-36); Mean Corpuscular Hgb 29.7 pg (27.0-32.0); Mean Corpuscular Volume 85.3 fL (80-94); Mean Platelet Vol. 10.4 fl (6.2-12.0); Monocyte# 0.67 X10^3/uL; Monocyte% 6.5 % (0-10); NRBC Flagged by Analyzer 0 % (0-5); Neutrophil # 7.22 X10^3/uL (2.7-7.7); Neutrophil % 70.2 % (47-70); Platelet Count 204 K/mm3 (150-450); RBC Distribution Width CV 13.1 % (11.6-14.6); RBC Distribution Width SD 40.6 fl (35.1-43.9); Red Blood Count 5.58 M/mm3 (4.6-6.2); White Blood Count 10.3 K/mm3 (4.4-11.0)
[2023-10-31 13:50] VITALS: BP 118/81; PULSE 78; RESP 18; O2SAT 93
--- NOTE | 2023-10-31 13:50 | EKG12_ITS ---
Test Reason : GENERAL Blood Pressure : / mmHG Vent. Rate : 074 BPM Atrial Rate : 074 BPM P-R Int : 170 ms QRS Dur : 102 ms QT Int : 384 ms P-R-T Axes : 038 069 038 degrees QTc Int : 426 ms Normal sinus rhythm Normal ECG Confirmed by Rayray Escoto ([id number]), assistant editor SARANYA RHODES ([id number]) on 11/05/2023 10:22:00 AM Referred By: Confirmed By:Rayray Escoto
--- NOTE | 2023-10-31 13:50 | CT_ITS ---
STUDY: CT ABDOMEN AND PELVIS WITH CONTRAST REASON FOR EXAM: Male, 43 years old. Epigastric pain RADIATION DOSAGE (If Supplied By Facility): CTDIvol = ( 17.07 ) mGy, DLP = ( 1397.42 ) mGycm TECHNIQUE: Transaxial images were obtained from the dome of the diaphragm to the symphysis pubis without oral contrast. IV 100mL Isovue-300 was administered. Sagittal and coronal images were reconstructed. Individualized dose optimization techniques were used for this CT. COMPARISON: None. FINDINGS: Minimal increased markings at the right lung base suggestive of atelectasis. The visualized portions of the heart are within normal limits. There is decreased attenuation of the liver consistent with steatosis. The patient is status post cholecystectomy. There is mild splenomegaly. Normal pancreas. Normal bilateral adrenal glands. 2 mm nonobstructive calculus in the midpole calyx of the right kidney. Normal left kidney. There is a small hiatal hernia. Normal small intestine. There are scattered colonic diverticula consistent with diverticulosis. The appendix is visualized and appears normal. Normal abdominal aorta. Normal inferior vena cava. Normal retroperitoneum. Normal urinary bladder. Normal abdominal wall. Normal osseous structures. CT/Abdomen/Pelvis W IV Cont ONLY IMPRESSION: Fatty infiltration of the liver. Scattered sigmoid diverticula. Status post cholecystectomy. Mild splenomegaly. Electronically Signed: Noel Ayala MD at 14:39 EDT ,
[2023-10-31] MEDS: Ondansetron 4 MG/2 ML Vial IV (13:53)
[2023-10-31] MEDS: Morphine 4 MG/ML Syringe IV (13:53)
[2023-10-31 13:54] LABS: AST(SGOT) 26 U/L (15-37); Alanine Aminotransfer ALT/SGPT 54 U/L (16-61); Albumin, Serum 3.9 g/dL (3.2-5.0); Alkaline Phosphatase 103 U/L (45-117); Anion Gap 4 (5-15); BUN 10 mg/dL (7-18); BUN/Creat Ratio 9.2 RATIO (10-20); Calcium,Total 9.4 mg/dL (8.5-10.1); Chloride 105 mmol/L (98-107); Creatinine, Serum 1.09 mg/dL (0.70-1.30); EST Glomerular Filtration Rate 79 mL/min (>60); Est Glom Filt Rate - Afr Amer 96 mL/min (>60); Estimated Creatinine Clearance 119.32 ml/min; Globulin 4.1 g/dL (2.2-4.2); Glucose 116 mg/dL (74-106); Sodium Level 139 mmol/L (136-145)
[2023-10-31] MEDS: 0.9% Normal Saline (1000mL) 1,000 ML 999 ML IV (13:54)
[2023-10-31 14:04] LABS: Lipase 31 U/L (13-75)
[2023-10-31 14:41] LABS: Red Blood Cells-Urine 0 SEEN /hpf (0-5)
[2023-10-31 14:45] LABS: Color, Urine Yellow (Yellow); Glucose, Dipstick Normal (Normal); Ketone-Dipstick 5 mg/dl (Negative); Leukocyte Esterase-Dipstick 25 /ul (Negative); Nitrite-Dipstick Negative (Negative); Occult Blood-Urine Negative /ul (Negative); Protein-Dipstick 30 mg/dl (Negative); Urine Bilirubin Dipstick 1 mg/dL (Negative); Urine Clarity Sl. Cloudy (Clear); Urine Urobilinogen 4 mg/dl (Normal)
[2023-10-31 14:51] LABS: Hyaline Cast 0-5 SEEN /lpf (0-5); Squamous Epithelial Cells - UA 0-5 SEEN /hpf (0-5); White Blood Cells 0-5 SEEN /hpf (0-5)
[2023-10-31 14:52] LABS: Bacteria 1+ /hpf (None Seen); Mucous, Urine 3+ /hpf (<or=2+)
--- NOTE | 2023-10-31 14:58 | EDS_ITS ---
HPI History of Present Illness Chief Complaint: Abd Pain Narrative Narrative: Patient is a 43-year-old male with past medical history of PTSD, LOBO, panic disorder who presents to the emergency department with chief complaint of abdominal pain. Patient states that since Sunday he has had worsening abdominal pain prompting him to come here for further evaluation management. Patient noted that he on Sunday just received his third shot of Wegovy and noted that since then he has been having some issues with his abdominal pain. He states that anytime he attempts to eat or drink anything he has worsening pain and states that he feels like he is going to vomit. Patient states that he does have a history of cholecystectomy but denies any other abdominal surgeries. Patient states that he has had some diarrhea and passing gas denies any dark tarry stools or blood in his stool. 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) Obstructive sleep apnea on CPAP PTSD (post-traumatic stress disorder) Panic disorder Major depressive disorder, recurrent severe without psychotic features Paronychia of great toe, left Chronic neck and back pain Knee pain Seasonal allergies Home Medications ?Medication ?Instructions ?Recorded ?Last Taken ?Type trazodone 150 mg tablet 150 mg PO QHS 07/28/20 Unknown History venlafaxine 150 mg 150 mg PO BID 01/08/21 Unknown History capsule,extended release 24 hr bupropion HCl 150 mg 24 hr tablet, 150 mg PO DAILY 30 days #30 tabs 06/22/21 Unknown Rx extended release (Wellbutrin XL) prazosin 1 mg capsule 2 mg PO QHS 06/22/21 Unknown History risperidone 2 mg tablet (Risperdal) 2 mg PO DAILY 06/22/21 Unknown History amoxicillin 875 mg-potassium 1 tab PO BID #20 tabs 01/16/23 Unknown Rx clavulanate 125 mg tablet ixekizumab 80 mg/mL subcutaneous 80 mg subcut Q4W 01/16/23 Unknown History syringe (Taltz Syringe) dicyclomine 10 mg capsule 10 mg PO TID #30 caps 10/31/23 Unknown Rx ondansetron 4 mg disintegrating 4 mg PO Q6H PRN nausea and 10/31/23 Unknown Rx tablet vomiting #20 tabs Allergy/AdvReac Type Severity Reaction Status Date / Time No Known Allergies Allergy Verified 10/31/23 12:22 Surgical History History of cholecystectomy Social History Smoking Status: Never smoker alcohol intake: current alcohol intake frequency: a few times a week Alcohol type: beer ROS ROS ED ROS Narrative Constitutional: Denies any fevers, chills, headaches, lightheadedness, dizziness Cardiovascular: Denies chest pain or palpitations Respiratory: Denies coughing wheezing shortness of breath Abdomen: Complains of abdominal pain, nausea vomiting as noted above denies diarrhea : Denies any urinary symptoms Neurological: Denies any numbness, weakness, tingling Musculoskeletal: Denies back pain Skin: Denies rashes or lesions EXAM Physical Exam Narrative Exam Narrative: General: Patient lying in bed rest comfortably did not appear to be in acute distress Head: Atraumatic, normocephalic Eyes: PERRL bilaterally, EOMI bilateral, no conjunctival injection noted Neck: Soft and supple, trach midline Cardiovascular: Regular rate and rhythm no murmurs gallops rubs noted Respiratory: Clear to auscultation bilaterally no rales rhonchi or wheezes noted Abdomen: Soft, nondistended, tender to palpation epigastric region no rebound or guarding on exam, bowel sounds present x 4 Extremities: +5/5 strength noted in the bilateral upper and lower extremities Neurological: Patient following commands knew that he was at [facility] years 2023 Skin: Warm, dry, intact Const Vital Signs: 10/31/23 12:20 10/31/23 13:50 10/31/23 15:01 Temperature 98 F Temperature Source Temporal Pulse Rate 106 H 78 70 Respiratory Rate 16 18 17 Blood Pressure 121/88 H 118/81 H 118/79 Blood Pressure Mean 99 93 92 Pulse Ox 93 93 94 Oxygen Delivery Method Room Air Room Air Room Air MDM MDM MDM Narrative Medical decision making narrative: Patient is a 43-year-old male who presented to the emergency department with chief complaint of abdominal pain. Patient will have a workup performed here on the differential diagnose includes but not limited to viral gastroenteritis, pancreatitis, UTI. Once workup is obtained reviewed he will be reevaluated. Patient be given IV fluids, morphine Zofran. Patient CBC reviewed showed no evidence leukocytosis white blood count normal 10.3, hemoglobin stable at 16.6, plate count normal at 204. Patient sodium normal 139, potassium normal at 4, creatinine normal at 1.09. Patient's AST and ALT were normal at 26 and 54 respectively with a normal total bilirubin of 0.80. Patient lipase normal at 31, urinalysis did not reveal any evidence of infection. Patient CT abdomen pelvis with IV contrast showed fatty infiltration of liver scattered sigmoid diverticula status post cholecystectomy mild splenomegaly noted. Patient's EKG reviewed and independently interpreted by myself which showed sinus rhythm with a rate of 74 bpm Did discuss results and he states that he is feeling better than when he arrived he would like to go home at this point time. Patient will be prescribed Bentyl as well as Zofran. He is encouraged to follow-up with primary care physician outpatient setting. He is encouraged return with worsening symptoms or other concerns. All question concerns answered he is discharged home in stable condition. Lab Data Labs: Laboratory Results - last 24 hr 10/31/23 10/31/23 13:25 14:30 WBC 10.3 RBC 5.58 Hgb 16.6 H Hct 47.6 MCV 85.3 MCH 29.7 MCHC 34.9 RDW Std Deviation 40.6 RDW Coeff of Shameka 13.1 Plt Count 204 MPV 10.4 Immature Gran % (Auto) 0.400 Neut % (Auto) 70.2 H Lymph % (Auto) 22.5 [place] % (Auto) 6.5 Eos % (Auto) 0.0 Baso % (Auto) 0.4 Absolute Neuts (auto) 7.2 Absolute Lymphs (auto) 2.31 Nucleated RBC % 0 Sodium 139 Potassium 4.0 Chloride 105 Carbon Dioxide 30.0 Anion Gap 4 L BUN 10 Creatinine 1.09 Estim Creat Clear Calc 119.32 Est GFR (MDRD) Af Amer 96 Est GFR (MDRD) Non-Af 79 BUN/Creatinine Ratio 9.2 L Glucose 116 H Calcium 9.4 Total Bilirubin 0.80 AST 26 ALT 54 Alkaline Phosphatase 103 Total Protein 8.0 Albumin 3.9 Globulin 4.1 Albumin/Globulin Ratio 1.0 Lipase 31 Urine Color Yellow Urine Clarity Sl. Cloudy Urine pH 5.0 Ur Specific [place] 1.020 Urine Protein 30 H Urine Glucose (UA) Normal Urine Ketones 5 H Urine Occult Blood Negative Urine Nitrite Negative Urine Bilirubin 1 H Urine Urobilinogen 4 H Ur Leukocyte Esterase 25 H Urine RBC 0 SEEN Urine WBC 0-5 SEEN Ur Squamous Epith Cells 0-5 SEEN Urine Bacteria 1+ Hyaline Casts 0-5 SEEN Urine Mucus 3+ Radiography Diagnostic Testing: Clinical Impression(s) from Imaging Studies Abdomen/Pelvis CT 10/31/23 13:50 IMPRESSION: Fatty infiltration of the liver. Scattered sigmoid diverticula. Status post cholecystectomy. Mild splenomegaly. Electronically Signed: Noel Ayala MD at 14:39 EDT , Discharge Plan Triage Chief Complaint: Abd Pain Other Complaint: Dizziness ED Provider: Mitchell Ferrara Dx/Rx/DC Orders Clinical Impression: Abdominal pain Prescriptions: New dicyclomine 10 mg capsule 10 mg PO TID Qty: 30 0RF ondansetron 4 mg tablet,disintegrating 4 mg PO Q6H PRN (Reason: nausea and vomiting) Qty: 20 0RF No Action trazodone 150 mg tablet 150 mg PO QHS Taltz Syringe 80 mg/mL syringe 80 mg subcut Q4W amoxicillin-pot clavulanate 875-125 mg tablet 1 tab PO BID Qty: 20 0RF venlafaxine 150 mg capsule,extended release 24hr 150 mg PO BID bupropion HCl [Wellbutrin XL] 150 mg tablet extended release 24 hr 150 mg PO DAILY 30 Days Qty: 30 1RF Rx Instructions: Take one po in morning. prazosin 1 mg Capsule 2 mg PO QHS risperidone [Risperdal] 2 mg Tablet 2 mg PO DAILY Primary Care Provider: Wilmer Kuhn Referrals: Wilmer Kuhn MD [Primary Care Provider] - Activity Restrictions/Additional Instructions: Follow-up with your doctor in the outpatient setting. Take your prescriptions as prescribed. Return with worsening symptoms or other concerns as discussed here. Print Language: French Disposition Disposition: Home, Self Care
[2023-10-31 15:01] VITALS: BP 118/79; PULSE 70; RESP 17; O2SAT 94
[2023-10-31 15:32] VITALS: BP 118/79; PULSE 70; RESP 17; TEMP 37.1; O2SAT 94
== END 2023-10-31 15:34 | disposition home or self-care (01) ==
PROVIDERS: Emergency Provider Emergency Medicine; PCP Family Medicine; Visit Provider Emergency Medicine
DX: R10.9 Unspecified abdominal pain (principal); F33.3 Major depressive disorder, recurrent, severe with psychotic symptoms; Z90.49 Acquired absence of other specified parts of digestive tract; G47.33 Obstructive sleep apnea (adult) (pediatric); Z99.89 Dependence on other enabling machines and devices; Z79.899 Other long term (current) drug therapy
CPT/HCPCS: 74177; 80053; 81001; 83690; 85025; 93005; 96361; 96374; 96375; 99284; J7030; Q9967; A4216; J2405

== ENCOUNTER 2023-11-01 09:20 | Emergency (ER) | payer OTHER, SELFPAY ==
[2023-11-01 09:21] VITALS: BP 121/81; PULSE 73; RESP 14; TEMP 35.9; O2SAT 98; BMI 45.1
--- NOTE | 2023-11-01 09:31 | EDS_ITS ---
HPI HPI - GI History of Present Illness Chief Complaint: Abd Pain Informant: patient Abdominal Pain/Flank Pain Onset: Days (5) Context: Gradual Onset Timing: Continuous Quality: Aching Location: Epigastric, RUQ and LUQ Worsened by: Nothing Relieved by: Nothing Nausea/Vomiting/Emesis GI Symptom: Positive for Nausea and Vomiting Quality: Positive for Nonbilious; Negative for Blood streaks, Coffee ground or Hematemesis Diarrhea/Melena/Hematochezia GI Symptom: Positive for Diarrhea; Negative for Melena or Hematochezia Associated Symptoms Associated Symptoms: Negative for Dysuria, Frequency or Hematuria Narrative Narrative: Patient presents with abdominal pain that became worse again today. Patient was seen yesterday for this. Patient states he had labs and CT scan which were negative. Patient states his pain returned today. Patient states he had an injection of Wegovy the day before his pain started. Patient describes his pain as aching. Patient states it is mainly over the upper abdomen. Patient states nothing makes it better nothing makes it worse. Patient admits to some nausea and vomiting. Patient denies any hematemesis or coffee-ground emesis. Patient admits to some diarrhea but denies any melena or hematochezia. Patient denies any back pain. Patient denies any urinary complaints. 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) Obstructive sleep apnea on CPAP PTSD (post-traumatic stress disorder) Panic disorder Major depressive disorder, recurrent severe without psychotic features Paronychia of great toe, left Chronic neck and back pain Knee pain Seasonal allergies Home Medications ?Medication ?Instructions ?Recorded ?Last Taken ?Type trazodone 150 mg tablet 150 mg PO QHS 07/28/20 Unknown History venlafaxine 150 mg 150 mg PO BID 01/08/21 Unknown History capsule,extended release 24 hr bupropion HCl 150 mg 24 hr tablet, 150 mg PO DAILY 30 days #30 tabs 06/22/21 Unknown Rx extended release (Wellbutrin XL) prazosin 1 mg capsule 2 mg PO QHS 06/22/21 Unknown History risperidone 2 mg tablet (Risperdal) 2 mg PO DAILY 06/22/21 Unknown History amoxicillin 875 mg-potassium 1 tab PO BID #20 tabs 01/16/23 Unknown Rx clavulanate 125 mg tablet ixekizumab 80 mg/mL subcutaneous 80 mg subcut Q4W 01/16/23 Unknown History syringe (Taltz Syringe) dicyclomine 10 mg capsule 10 mg PO TID #30 caps 10/31/23 Unknown Rx ondansetron 4 mg disintegrating 4 mg PO Q6H PRN nausea and 10/31/23 Unknown Rx tablet vomiting #20 tabs hydrocodone-acetaminophen 5-325mg 1 tab PO Q6H PRN PRN Pain 3 days 11/01/23 Unknown Rx 5mg-325mg #10 TABLETS Allergy/AdvReac Type Severity Reaction Status Date / Time No Known Allergies Allergy Verified 11/01/23 09:20 Surgical History History of cholecystectomy Social History Smoking Status: Never smoker alcohol intake: current alcohol intake frequency: a few times a week Alcohol type: beer ROS ROS ED Constitutional Constitutional ED: Denies chills or fever(s) Eyes Eyes: Denies blurry vision or change in vision ENT ENT ED: Denies rhinorrhea or sore throat Cardiovascular Cardiovascular: Denies chest pain or palpitations Respiratory/Chest Respiratory/Chest: Denies cough or dyspnea Gastrointestinal Gastrointestinal: Reports abdominal pain, diarrhea, nausea and vomiting; Denies melena Genitourinary Genitourinary ED: Denies dysuria or hematuria Musculoskeletal Musculoskeletal: Denies back pain or neck pain Integumentary Denies abscess or rash Neurologic Neurologic: Reports headache(s); Denies weakness Allergic/Immunologic Allergic/Immunologic ED: Denies mouth swelling or urticaria EXAM Physical Exam Const Vital Signs: 11/01/23 09:21 11/01/23 11:20 Temperature 96.7 F L Temperature Source Temporal Pulse Rate 73 72 Respiratory Rate 14 16 Blood Pressure 121/81 H 139/84 H Blood Pressure Mean 94 102 Pulse Ox 98 98 Oxygen Delivery Method Room Air Room Air Positive well nourished, well developed and obese General Appearance ED: well developed and NAD Nutritional Appearance: obese HEENT Reports moist mucous membranes Neck supple and no JVD Resp normal respiratory effort and clear to auscultation bilaterally Cardio regular rate and regular rhythm GI non-distended Palpation: soft and tender epigastric, LUQ and RUQ; Negative for guarding or rebound tenderness present Extremity General Extremety ED: Negative for edema General Extremity: Negative for edema Neuro CN's II-XII intact bilaterally, moves all extremities and no sensory deficits noted Sensorium / Orientation: alert Motor Exam: strength 5/5 throughout Psych mental status grossly normal MDM MDM MDM Narrative Medical decision making narrative: Differential diagnosis includes gastritis, choledocholithiasis, pancreatitis, bowel obstruction, perforation, electrolyte abnormality, colitis, gastroenteritis, and viral illness. CBC will be obtained to assess for leukocytosis and anemia. Comprehensive metabolic profile will be obtained to assess for hepatic function, renal function, and electrolyte abnormality. Lipase will be obtained to assess for pancreatitis. Urinalysis will be obtained to assess for urinary tract infection and hematuria. COVID-19, influenza, and RSV PCR will be obtained to assess for viral illness. Lab Data Attestation: I reviewed the patient's lab results. Lab results narrative: CBC was reviewed and was within normal limits. Comprehensive metabolic profile was reviewed and was within normal limits. Lipase was reviewed and was normal. Urinalysis was reviewed. There is no evidence of urinary tract infection or hematuria. Labs: Laboratory Results - last 24 hr 11/01/23 11/01/23 10:10 10:38 WBC 9.9 RBC 5.22 Hgb 15.6 Hct 43.9 MCV 84.1 MCH 29.9 MCHC 35.5 RDW Std Deviation 38.5 RDW Coeff of Shameka 12.7 Plt Count 180 MPV 10.3 Immature Gran % (Auto) 0.300 Neut % (Auto) 78.5 H Lymph % (Auto) 15.6 L [place] % (Auto) 5.3 Eos % (Auto) 0.0 Baso % (Auto) 0.3 Absolute Neuts (auto) 7.8 H Absolute Lymphs (auto) 1.55 Nucleated RBC % 0 Sodium 137 Potassium 3.7 Chloride 105 Carbon Dioxide 27.0 Anion Gap 5 BUN 9 Creatinine 0.86 Estim Creat Clear Calc 151.70 Est GFR (MDRD) Af Amer 126 Est GFR (MDRD) Non-Af 104 BUN/Creatinine Ratio 10.5 Glucose 108 H Calcium 9.1 Total Bilirubin 0.70 AST 24 ALT 56 Alkaline Phosphatase 96 Total Protein 7.4 Albumin 3.7 Globulin 3.7 Albumin/Globulin Ratio 1.0 Lipase 35 Urine Color Yellow Urine Clarity Sl. Cloudy Urine pH 7.0 Ur Specific [place] 1.010 Urine Protein 15 H Urine Glucose (UA) Normal Urine Ketones 50 H Urine Occult Blood Negative Urine Nitrite Negative Urine Bilirubin 1 H Urine Urobilinogen 8 H Ur Leukocyte Esterase 25 H Urine RBC 0 SEEN Urine WBC 0-5 SEEN Ur Squamous Epith Cells 0-5 SEEN Urine Bacteria 1+ Urine Mucus 2+ Treatment and Re-Evaluation :: Patient was given IV fluids, morphine, and Zofran. Patient was feeling better after this. Patient states his pain started to return. Patient was given a repeat dose of morphine and Zofran. Patient was given a prescription for hydrocodone and Zofran. Patient was instructed to follow-up with his primary care physician in 3 to 5 days. Patient was advised that this could be a side effect of the Wegovy the injection. Patient was instructed to start with a bland diet and advance as tolerated. Patient was instructed to return if worse in any way. Patient understood and was agreeable with the plan. All questions were answered. Discharge Plan Triage Chief Complaint: Abd Pain ED Provider: Gumaro Barbosa Dx/Rx/DC Orders Clinical Impression: Abdominal pain, Medication side effect Instructions: ED Abdominal Pain Unkn Cause Male... Prescriptions: New hydrocodone-acetaminophen 5-325 mg tablet 1 tab PO Q6H PRN PRN (Reason: Pain) 3 Days Qty: 10 0RF No Action trazodone 150 mg tablet 150 mg PO QHS Taltz Syringe 80 mg/mL syringe 80 mg subcut Q4W amoxicillin-pot clavulanate 875-125 mg tablet 1 tab PO BID Qty: 20 0RF venlafaxine 150 mg capsule,extended release 24hr 150 mg PO BID bupropion HCl [Wellbutrin XL] 150 mg tablet extended release 24 hr 150 mg PO DAILY 30 Days Qty: 30 1RF Rx Instructions: Take one po in morning. prazosin 1 mg Capsule 2 mg PO QHS risperidone [Risperdal] 2 mg Tablet 2 mg PO DAILY dicyclomine 10 mg capsule 10 mg PO TID Qty: 30 0RF ondansetron 4 mg tablet,disintegrating 4 mg PO Q6H PRN (Reason: nausea and vomiting) Qty: 20 0RF Primary Care Provider: Wilmer Kuhn Referrals: Wilmer Kuhn MD [Primary Care Provider] - 3-5 Days Print Language: Grenadian Disposition Disposition: Home, Self Care
[2023-11-01] MEDS: 0.9% Normal Saline (1000mL) 1,000 ML 999 ML IV (10:11)
[2023-11-01] MEDS: Ondansetron 4 MG/2 ML Vial IV ×2 (10:12→12:32)
[2023-11-01] MEDS: Morphine 4 MG/ML Syringe IV ×2 (10:13→12:32)
[2023-11-01 10:23] LABS: Absolute Lymphocyte Count 1.55 X10^3/uL (0.83-4.51); Absolute Neutrophil Count 7.8 X10^3/uL (2.0-7.7); Basophil# 0.03 X10^3/uL; Basophil% 0.3 % (0-1); Hematocrit 43.9 % (40-54); Hemoglobin 15.6 g/dL (13.0-16.5); Lymphocyte # 1.55 X10^3/ul (0.83-4.51); Lymphocyte % 15.6 % (19-41); Mean Corp Hgb Conc 35.5 g/dL (32-36); Mean Corpuscular Hgb 29.9 pg (27.0-32.0); Mean Corpuscular Volume 84.1 fL (80-94); Mean Platelet Vol. 10.3 fl (6.2-12.0); Monocyte# 0.53 X10^3/uL; Monocyte% 5.3 % (0-10); NRBC Flagged by Analyzer 0 % (0-5); Neutrophil # 7.77 X10^3/uL (2.7-7.7); Neutrophil % 78.5 % (47-70); Platelet Count 180 K/mm3 (150-450); RBC Distribution Width CV 12.7 % (11.6-14.6); RBC Distribution Width SD 38.5 fl (35.1-43.9); Red Blood Count 5.22 M/mm3 (4.6-6.2); White Blood Count 9.9 K/mm3 (4.4-11.0)
[2023-11-01 10:45] LABS: Red Blood Cells-Urine 0 SEEN /hpf (0-5)
[2023-11-01 10:49] LABS: Color, Urine Yellow (Yellow); Glucose, Dipstick Normal (Normal); Ketone-Dipstick 50 mg/dl (Negative); Leukocyte Esterase-Dipstick 25 /ul (Negative); Nitrite-Dipstick Negative (Negative); Occult Blood-Urine Negative /ul (Negative); Protein-Dipstick 15 mg/dl (Negative); Urine Clarity Sl. Cloudy (Clear); Urine Urobilinogen 8 mg/dl (Normal)
[2023-11-01 10:51] LABS: AST(SGOT) 24 U/L (15-37); Alanine Aminotransfer ALT/SGPT 56 U/L (16-61); Albumin, Serum 3.7 g/dL (3.2-5.0); Alkaline Phosphatase 96 U/L (45-117); Anion Gap 5 (5-15); BUN 9 mg/dL (7-18); BUN/Creat Ratio 10.5 RATIO (10-20); Calcium,Total 9.1 mg/dL (8.5-10.1); Chloride 105 mmol/L (98-107); Creatinine, Serum 0.86 mg/dL (0.70-1.30); EST Glomerular Filtration Rate 104 mL/min (>60); Est Glom Filt Rate - Afr Amer 126 mL/min (>60); Globulin 3.7 g/dL (2.2-4.2); Glucose 108 mg/dL (74-106); Lipase 35 U/L (13-75); Potassium 3.7 mmol/L (3.5-5.1); Protein, Total 7.4 g/dL (6.4-8.2); Sodium Level 137 mmol/L (136-145)
[2023-11-01 10:57] LABS: Urine Bilirubin Dipstick 1 mg/dL (Negative)
[2023-11-01 11:06] LABS: Bacteria 1+ /hpf (None Seen); Mucous, Urine 2+ /hpf (<or=2+); Squamous Epithelial Cells - UA 0-5 SEEN /hpf (0-5); White Blood Cells 0-5 SEEN /hpf (0-5)
[2023-11-01 11:20] VITALS: BP 139/84; PULSE 72; RESP 16; O2SAT 98
[2023-11-01 12:41] VITALS: BP 129/84; PULSE 76; RESP 15; TEMP 36.6; O2SAT 99
== END 2023-11-01 12:42 | disposition home or self-care (01) ==
PROVIDERS: Emergency Provider Emergency Medicine; PCP Family Medicine; Visit Provider Emergency Medicine
DX: R10.9 Unspecified abdominal pain (principal); R11.2 Nausea with vomiting, unspecified; G47.33 Obstructive sleep apnea (adult) (pediatric); Z99.89 Dependence on other enabling machines and devices; F33.9 Major depressive disorder, recurrent, unspecified; Z79.899 Other long term (current) drug therapy; Z90.49 Acquired absence of other specified parts of digestive tract; T50.995A Adverse effect of other drugs, medicaments and biological substances, initial encounter
CPT/HCPCS: 80053; 81001; 83690; 85025; 96361; 96374; 96375; 96376; 99283; J7030; A4216; J2405